=== PATIENT | male | born 1995 | race Caucasian/White ===

== ENCOUNTER 2019-04-02 11:04 | Emergency (ER) | payer MEDICAID ==
[2019-04-02 11:28] LABS: BILIRUBIN,URINE NEGATIVE (NEGATIVE); GLUCOSE, URINE (UA) NEGATIVE (NEGATIVE); KETONES,URINE (UA) NEGATIVE (NEGATIVE); LEUKOCYTE ESTERASE, URINE NEGATIVE (NEGATIVE); NITRITE,URINE NEGATIVE (NEGATIVE); OCCULT BLOOD,URINE SMALL (NEGATIVE); PROTEIN,URINE TRACE mg/dL (NEGATIVE); UROBILINOGEN,URINE 0.2 (NORMAL) E.U./dL (NORMAL)
[2019-04-02 11:33] LABS: CLARITY,URINE CLEAR (CLEAR)
[2019-04-02] MEDS ORDERED: SODIUM CHLORIDE 0.9% 1,000 ML IV ONE (11:45)
[2019-04-02] MEDS ORDERED: KETOROLAC 30 MG/ML VIAL IVP STA (11:45)
[2019-04-02] MEDS ORDERED: LIDOCAINE-MPF 2% 7.5 ML in SODIUM CHLORIDE 0.9% 50 ML IV STA (11:45)
[2019-04-02 11:46] LABS: MUCUS,URINE Moderate Strands; RBC,URINE 0-5 /HPF (0-5)
[2019-04-02 11:47] LABS: BASOPHILS # (AUTO) 0.1 10^3/uL (0.0-0.1); EOSINOPHILS # (AUTO) 0.2 10^3/uL (0.0-0.7); EOSINOPHILS % (AUTO) 3.4 %; HGB - HEMOGLOBIN 14.5 g/dL (14.0-18.0); LYMPHOCYTES # (AUTO) 1.6 10^3/uL (1.5-3.5); LYMPHOCYTES % (AUTO) 26.5 %; MEAN CORPUSCULAR HEMOGLOBIN 32.5 pg (27.0-31.0); MEAN CORPUSCULAR HGB CONC 34.6 g/dL (32.0-36.0); MEAN CORPUSCULAR VOLUME 93.9 fL (80.0-94.0); MONOCYTES # (AUTO) 0.5 10^3/uL (0.0-1.0); MONOCYTES % (AUTO) 7.8 %; NEUTROPHILS # (AUTO) 3.8 10^3/uL (1.5-6.6); NEUTROPHILS % (AUTO) 60.8 %; PLT - PLATELET COUNT 181 10^3/uL (130-450); RED BLOOD COUNT 4.46 10^6/uL (4.70-6.10); RED CELL DISTRIBUTION WIDTH 11.3 % (12.0-15.0); WHITE BLOOD COUNT 6.2 x10^3/uL (4.8-10.8)
[2019-04-02 12:05] LABS: ALBUMIN 4.1 g/dL (3.2-5.5); ALBUMIN/GLOBULIN RATIO 1.3 (1.0-2.2); BILIRUBIN,TOTAL 0.9 mg/dL (0.2-1.0); CALCIUM 8.7 mg/dL (8.5-10.3); CREATININE 0.7 mg/dL (0.6-1.2); TOTAL PROTEIN 7.2 g/dL (6.7-8.2)
[2019-04-02 12:15] LABS: BACTERIA,URINE None Seen /HPF (None Seen); SQUAMOUS EPITHELIAL CELL,UR NONE SEEN (<= Few)
--- NOTE | 2019-04-02 12:21 | ED Physician Documentation ---
PD HPI ABD PAIN - Stated complaint Stated Complaint: SIDE PX - Chief complaint Chief Complaint: Abd Pain - History obtained from History obtained from: Patient - History of Present Illness Timing - onset: How many hours ago (5) Timing - duration: Days (1) Timing - details: Abrupt onset Pain level max: 5 Pain level now: 5 Quality: Aching, Pain Location: Other (L flank to L groin) Radiation: No: Chest, , Lower back, Left flank, Left shoulder, Other, Right flank, Right shoulder, Upper back Improved by: Other (motrin) Worsened by: No: Eating, Moving, Breathing, Position, Palpation Associated symptoms: No: Fever, Nausea, Vomiting, Hematemesis, Diarrhea, Constipation, Melena, Hematochezia, Dysuria, Hematuria Similar symptoms before: Diagnosis (renal stones) Recently seen: Not recently seen Review of Systems Constitutional: denies: Fever, Chills Cardiac: denies: Chest pain / pressure Respiratory: denies: Cough GI: denies: Vomiting, Diarrhea Skin: denies: Rash Musculoskeletal: denies: Neck pain, Back pain Neurologic: denies: Headache PD PAST MEDICAL HISTORY - Past Medical History Past Medical History: Yes Cardiovascular: Hypertension Respiratory: None Neuro: None Endocrine/Autoimmune: None GI: None : Kidney stones HEENT: None Psych: None Musculoskeletal: None Derm: None - Past Surgical History Past Surgical History: Yes - Present Medications Home Medications: Ambulatory Orders Medication Instructions Recorded Confirmed Ibuprofen [Motrin] 800 mg PO Q8H PRN #30 tablet 04/02/19 Ondansetron Odt [Zofran] 4 mg TL Q6H PRN #10 tablet 04/02/19 Oxycodone HCl/Acetaminophen 1 - 2 each PO Q6H PRN #14 tablet 04/02/19 [Percocet 5-325 mg Tablet] - Allergies Allergies/Adverse Reactions: Allergies Allergy/AdvReac Type Severity Reaction Status Date / Time No Known Drug Allergies Allergy Verified 04/02/19 11:16 - Social History Does the pt smoke?: Yes Smoking Status: Current some day smoker Does the pt drink ETOH?: Yes Substance Use and Type: Marijuana - Immunizations Immunizations are current?: Yes PD ED PE NORMAL - Vitals Vital signs reviewed: Yes - General General: Alert and oriented X 3, No acute distress, Well developed/nourished - HEENT HEENT: PERRL, Moist mucous membranes - Neck Neck: Supple, no meningeal sign - Cardiac Cardiac: RRR, Strong equal pulses - Respiratory Respiratory: No respiratory distress, Clear bilaterally - Abdomen Abdomen: Soft, Non tender, Non distended - Back Back: No CVA TTP, No spinal TTP - Derm Derm: Warm and dry - Extremities Extremities: No edema - Neuro Neuro: Alert and oriented X 3 - Psych Psych: Normal mood, Normal affect Results - Vitals Vitals: Vital Signs - 24 hr 04/02/19 04/02/19 11:10 13:21 Temperature 36.4 C L 36.4 C L Heart Rate 61 73 Respiratory 16 20 Rate Blood Pressure 166/83 H 131/84 H O2 Saturation 96 98 Oxygen O2 Source Room air - Labs Labs: Laboratory Tests 04/02/19 04/02/19 04/02/19 11:22 11:39 11:39 WBC 6.2 RBC 4.46 L Hgb 14.5 Hct 41.9 L MCV 93.9 MCH 32.5 H MCHC 34.6 RDW 11.3 L Plt Count 181 MPV 10.0 Neut # (Auto) 3.8 Lymph # (Auto) 1.6 [place] # (Auto) 0.5 Eos # (Auto) 0.2 Baso # (Auto) 0.1 Absolute Nucleated RBC 0.00 Nucleated RBC % 0.0 Sodium 138 Potassium 3.6 Chloride 105 Carbon Dioxide 22 Anion Gap 11.0 BUN 14 Creatinine 0.7 Estimated GFR (MDRD) 139 Glucose 94 Calcium 8.7 Total Bilirubin 0.9 AST 23 ALT 47 Alkaline Phosphatase 48 Total Protein 7.2 Albumin 4.1 Globulin 3.1 Albumin/Globulin Ratio 1.3 Lipase 27 Urine Color YELLOW Urine Clarity CLEAR Urine pH 6.0 Ur Specific [place] 1.025 Urine Protein TRACE Urine Glucose (UA) NEGATIVE Urine Ketones NEGATIVE Urine Occult Blood SMALL H Urine Nitrite NEGATIVE Urine Bilirubin NEGATIVE Urine Urobilinogen 0.2 (NORMAL) Ur Leukocyte Esterase NEGATIVE Urine RBC 0-5 Urine WBC 0-3 Ur Squamous Epith Cells NONE SEEN Urine Bacteria None Seen Urine Mucus Moderate Strands Ur Microscopic Review INDICATED Urine Culture Comments NOT INDICATED PD MEDICAL DECISION MAKING - ED course Complexity details: reviewed results, re-evaluated patient, considered differential, d/w patient ED course: 23-year-old male presents to the emergency department what appears to be ureteral stone. Pain well controlled with Toradol, morphine, lidocaine. Tolerating p.o. without difficulty. Will place on pain medication for home and follow-up with his doctor. As he has had several ureteral stones in the past, will hold CT scan at this time. This was discussed with the patient. Patient and family counseled regarding signs and symptoms for which I believe and urgent re-evaluation would be necessary. Patient with good understanding of and agreement to plan and is comfortable going home at this time This document was made in part using voice recognition software. While efforts are made to proofread this document, sound alike and grammatical errors may occur. Departure - Departure Disposition: Home, Self Care Clinical Impression: Ureteral calculus, left Condition: Good Instructions: ED Stone Renal W Colic Follow-Up: your,doctor in 3 days [Other] Prescriptions: Ibuprofen [Motrin] 800 mg PO Q8H PRN #30 tablet PRN Reason: PAIN &/OR FEVER Ondansetron Odt [Zofran] 4 mg TL Q6H PRN #10 tablet PRN Reason: Nausea / Vomiting Oxycodone HCl/Acetaminophen [Percocet 5-325 mg Tablet] 1 - 2 each PO Q6H PRN #14 tablet PRN Reason: pain Comments: Return if you worsen. Follow-up with your doctor for further care. Return especially for uncontrolled pain or fevers. If your pain does not improve in the next several days, you should have a CT scan to ensure that the stone is small enough to pass. Do not drink alcohol or drive while on narcotic pain medicine. Note that many narcotic pain relievers also contain tylenol/acetaminophen. Please ensure that your total dose of acetaminophen from all sources does not exceed 3 grams (3000mg) per day. You may constipated on this medication, take a stool softener such as "Colace" twice a day while you are on it. Also recommend a iorf-[id number] laxative such as senna or MiraLAX any day that you do not have a bowel movement. If you received narcotic pain medication in the emergency department, do not drive or operate machinery for the next 24 hours. Discharge Date/Time: 04/02/19 13:30
[2019-04-02] MEDS ORDERED: MORPHINE 2 MG/ML CARPUJECT IVP STA (12:41)
[2019-04-02] MEDS ORDERED: oxyCODONE 5 MG TABLET PO STA (12:42)
[2019-04-02 13:22] VITALS: BP 131/84
== END 2019-04-02 13:30 | disposition home or self-care (01) ==
LOC: ED 11:04
DX: N20.1 Calculus of ureter (principal); Z87.442 Personal history of urinary calculi; I10 Essential (primary) hypertension; F17.200 Nicotine dependence, unspecified, uncomplicated
CPT/HCPCS: 36415; 80053; 81001; 83690; 85025; 96361; 96374; 96375; 99284; A9270; J7040; 81003; 87086

== ENCOUNTER 2019-04-06 12:54 | Emergency (ER) | payer MEDICAID ==
--- NOTE | 2019-04-06 13:38 | ED Physician Documentation ---
PD HPI LOWER EXT INJURY - Stated complaint Stated Complaint: RT GREAT TOE INJURY - Chief complaint Chief Complaint: Ext Problem - History obtained from History obtained from: Patient - History of Present Illness PD HPI LOW EXT INJURY LOCATION: Right, Toe (dropped object on toe and has pain and swelling, bruising.) Type of injury: Blunt / blow (dropped plate on toe and hs swelling/bruising and pain.) Where injury occurred: Home Timing - onset: Last night Timing - details: Abrupt onset, Still present (more painful today) Worsened by: Moving, Palpating Associated symptoms: Swelling, Discolored (bruised under nail and at nychial area). No: Weakness, Numbness Similar symptoms before: Has not had sx before Review of Systems Skin: denies: Abrasion (s), Laceration (s) Neurologic: denies: Focal weakness, Numbness PD PAST MEDICAL HISTORY - Past Medical History Cardiovascular: Hypertension Respiratory: None Neuro: None Endocrine/Autoimmune: None GI: None : Kidney stones HEENT: None Psych: None Musculoskeletal: None Derm: None - Past Surgical History Past Surgical History: Yes - Present Medications Home Medications: Ambulatory Orders Medication Instructions Recorded Confirmed Ibuprofen [Motrin] 800 mg PO Q8H PRN #30 tablet 04/02/19 Ondansetron Odt [Zofran] 4 mg TL Q6H PRN #10 tablet 04/02/19 Oxycodone HCl/Acetaminophen 1 - 2 each PO Q6H PRN #14 tablet 04/02/19 [Percocet 5-325 mg Tablet] - Allergies Allergies/Adverse Reactions: Allergies Allergy/AdvReac Type Severity Reaction Status Date / Time No Known Drug Allergies Allergy Verified 04/06/19 13:08 - Social History Does the pt smoke?: Yes Smoking Status: Current some day smoker Does the pt drink ETOH?: Yes - Immunizations Immunizations are current?: Yes PD ED PE NORMAL - Vitals Vital signs reviewed: Yes - General General: Alert and oriented X 3, No acute distress, Well developed/nourished - Derm Derm: Normal color, Warm and dry - Extremities Extremities: Other (right great toe with blood under proximal part of nail, and some bruising to base of nail and proximal distal phalanx dorsally. Normal sensation and movement. ) Results - Vitals Vitals: Oxygen O2 Source Room air - Rads (name of study) toe xray Radiology: Prelim report reviewed (no fracture), See rad report PD MEDICAL DECISION MAKING - ED course Complexity details: considered differential (battery cautery used to burn hole in nail and decompress the hematoma. He felt some better with that. ), d/w patient Departure - Departure Disposition: 01 Home, Self Care Clinical Impression: Subungual hematoma Toe contusion Qualifiers: Encounter type: initial encounter Toe: great toe Damage to nail status: with damage Laterality: right Qualified Code(s): S90.211A - Contusion of right great toe with damage to nail, initial encounter Condition: Stable Record reviewed to determine appropriate education?: Yes Instructions: ED Hematoma Subungual Comments: Soak the toe a little bit or some dilute peroxide and water at the nail if it seems to clog up and not draining. However will only drain for a little while until the blood underneath the nail clears out. After that the remaining bruising and swelling will take several days to decrease. Naproxen or ibuprofen as needed for pain and swelling. Add Tylenol if needed. Activity as tolerated. There were not any fractures on the x-ray. Discharge Date/Time: 04/06/19 14:10
[2019-04-06] MEDS ORDERED: ACETAMINOPHEN 325 MG TABLET PO STA (13:50)
[2019-04-06] MEDS ORDERED: IBUPROFEN 600 MG TABLET PO STA (13:50)
--- NOTE | 2019-04-06 13:51 | XRAY Report ---
Reason: plate vs foot Procedure Date: 04/06/2019 Accession Number: [id number] / [id number] Procedure: XR - Toe(s) RT CPT Code: FULL RESULT: EXAM: RIGHT TOE RADIOGRAPHY EXAM DATE: 04/06/2019 01:35 PM. CLINICAL HISTORY: Right great toe injury. COMPARISON: None available. TECHNIQUE: 3 views. FINDINGS: Bones: No acute fracture or dislocation. Joints: Intact and unremarkable. Soft Tissues: No radiopaque foreign body.. No significant soft tissue swelling. IMPRESSION: No acute fracture or dislocation visualized. RADIA
[2019-04-06 14:11] VITALS: BP 145/68
== END 2019-04-06 14:10 | disposition home or self-care (01) ==
LOC: ED 12:54
DX: S90.211A Contusion of right great toe with damage to nail, initial encounter (principal); W20.8XXA Other cause of strike by thrown, projected or falling object, initial encounter; Y92.009 Unspecified place in unspecified non-institutional (private) residence as the place of occurrence of the external cause; I10 Essential (primary) hypertension; F17.200 Nicotine dependence, unspecified, uncomplicated
CPT/HCPCS: 11740; 73660; 99283; A9270

== ENCOUNTER 2019-11-12 13:19 | Outpatient (CLI) | payer MEDICAID | END 2019-11-12 13:20 | disposition critical access hospital (66) | LOC: EMS 13:19 | PROVIDERS: ATTEND Surgery | DX: R07.9 Chest pain, unspecified (principal) | CPT/HCPCS: A0425; A0429; A0999 ==

== ENCOUNTER 2019-11-12 13:41 | Emergency (ER) | payer MEDICAID ==
--- NOTE | 2019-11-12 13:53 | ED Physician Documentation ---
PD HPI CHEST PAIN - Stated complaint Stated Complaint: CP - Chief complaint Chief Complaint: Cardiac - History obtained from History obtained from: Patient - History of Present Illness Timing - onset: Today Timing - onset during: Light activity (Just normal activity without any direct impact fall or heavy lifting.) Timing - duration: Hours Timing - details: Abrupt onset Quality: Aching, Sharp Location: Left chest (anterolateral) Radiation: Back. No: Neck, Left upper extremity Improved by: No: Rest Worsened by: Inspiration, Movement. No: Eating, Palpation Associated symptoms: Shortness of air, Feeling faint / dizzy. No: Nausea, General Weakness, Palpitations, Cough Similar symptoms before: Has not had sx before Review of Systems Constitutional: denies: Fever, Chills Nose: denies: Rhinorrhea / runny nose, Congestion Throat: denies: Sore throat Cardiac: denies: Palpitations, Pedal edema, Calf pain Respiratory: denies: Cough GI: denies: Abdominal Pain, Nausea, Vomiting, Diarrhea : denies: Hematuria Skin: denies: Rash, Lesions Neurologic: reports: Generalized weakness, Near syncope. denies: Focal weakness, Numbness, Syncope PD PAST MEDICAL HISTORY - Past Medical History Cardiovascular: Hypertension Respiratory: None Neuro: None Endocrine/Autoimmune: None GI: None : Kidney stones HEENT: None Psych: None Musculoskeletal: None Derm: None - Past Surgical History Past Surgical History: Yes - Present Medications Home Medications: Ambulatory Orders Medication Instructions Recorded Confirmed Ibuprofen [Motrin] 800 mg PO Q8H PRN #30 tablet 04/02/19 11/12/19 Hydrocodone/Acetaminophen [[place] 1 each PO Q6H PRN #15 tablet 11/12/19 5-325 Tablet] Naproxen 500 mg PO BID #20 tablet 11/12/19 - Allergies Allergies/Adverse Reactions: Allergies Allergy/AdvReac Type Severity Reaction Status Date / Time No Known Drug Allergies Allergy Verified 11/12/19 14:29 - Living Situation Living Arrangement: reports: At home - Social History Does the pt smoke?: Yes Smoking Status: Current some day smoker Does the pt drink ETOH?: Yes Does the pt have substance abuse?: No - Family History Family history: reports: CAD. denies: Sudden , Aortic aneursym, Aortic dissection - Immunizations Immunizations are current?: Yes PD ED PE NORMAL - Vitals Vital signs reviewed: Yes - General General: Alert and oriented X 3, Well developed/nourished, Other (He appears uncomfortable with slightly splinted breathing and guarded range of motion of the trunk. He is able to talk in normal sentences.) - HEENT HEENT: Ears normal, Moist mucous membranes, Pharynx benign - Neck Neck: Supple, no meningeal sign, No adenopathy - Cardiac Cardiac: RRR, No murmur - Respiratory Respiratory: Clear bilaterally, Other (Some chestwall tenderness left lower sternal border and medial costal margin. Right not tender. ) - Abdomen Abdomen: Soft, Non tender Results - Vitals Vitals: Vital Signs - 24 hr 11/12/19 11/12/19 11/12/19 13:46 14:23 15:36 Temperature 36.9 C 37 C Heart Rate 92 86 84 Respiratory 16 18 18 Rate Blood Pressure 151/100 H 153/97 H 143/98 H O2 Saturation 98 98 96 Oxygen O2 Source Room air - EKG (time done) 13:45 Rate: Rate (enter#) (85) Rhythm: NSR [place]: Normal Intervals: Normal [place] QRS: Normal Ischemia: Normal ST segments. No: ST elevation c/w ischemia, ST depression - Labs Labs: Laboratory Tests 11/12/19 11/12/19 11/12/19 13:51 14:29 14:29 WBC 5.5 RBC 4.22 L Hgb 15.3 Hct 41.6 L MCV 98.6 H MCH 36.3 H MCHC 36.8 H RDW 11.2 L Plt Count 150 MPV 9.9 Neut # (Auto) 4.1 Lymph # (Auto) 0.8 L [place] # (Auto) 0.4 Eos # (Auto) 0.1 Baso # (Auto) 0.1 Absolute Nucleated RBC 0.00 Nucleated RBC % 0.0 D-Dimer < 200.0 L Sodium 134 L Potassium 3.6 Chloride 102 Carbon Dioxide 24 Anion Gap 8.0 BUN 7 Creatinine 0.6 Estimated GFR (MDRD) 164 Glucose 124 H Calcium 8.3 L Total Bilirubin 1.2 H AST 131 H ALT 112 H Alkaline Phosphatase 71 Troponin I High Sens B-Natriuretic Peptide Total Protein 7.5 Albumin 3.9 Globulin 3.6 Albumin/Globulin Ratio 1.1 Lipase 25 11/12/19 11/12/19 14:29 14:29 WBC RBC Hgb Hct MCV MCH MCHC RDW Plt Count MPV Neut # (Auto) Lymph # (Auto) [place] # (Auto) Eos # (Auto) Baso # (Auto) Absolute Nucleated RBC Nucleated RBC % D-Dimer Sodium Potassium Chloride Carbon Dioxide Anion Gap BUN Creatinine Estimated GFR (MDRD) Glucose Calcium Total Bilirubin AST ALT Alkaline Phosphatase Troponin I High Sens 13.4 B-Natriuretic Peptide 19 Total Protein Albumin Globulin Albumin/Globulin Ratio Lipase - Rads (name of study) chest xray Radiology: Prelim report reviewed, See rad report (normal) PD MEDICAL DECISION MAKING - ED course Complexity details: reviewed results (Chest x-ray is normal. EKG does not show any ischemic changes. Blood tests exclude any signs of acute cardiac myocardial process nor heart failure. Negative d-dimer would exclude clots and vascular processes such as dissection.), re-evaluated patient, considered differential (We will get a chest x-ray as well as some blood test to look for heart and vascular processes. This may be musculoskeletal but would be exclusionary of not finding other bad things.), d/w patient Departure - Departure Disposition: 01 Home, Self Care Clinical Impression: Anterior chest wall pain Condition: Stable Record reviewed to determine appropriate education?: Yes Instructions: ED Chest Pain Atypical Unkn Cause Prescriptions: Hydrocodone/Acetaminophen [[place] 5-325 Tablet] 1 each PO Q6H PRN #15 tablet PRN Reason: Pain Naproxen 500 mg PO BID #20 tablet Comments: Your EKG, chest x-ray, blood tests are normal so no signs of more significant causes such as heart lung or vascular. At this point we will presume some musculoskeletal pain and treated with anti-inflammatories of naproxen. At that to that Tylenol or pain medicine as needed. Recheck if not improving well over the next several days and resolved over 4 to 5 days. Return if worse or other symptoms develop. Discharge Date/Time: 11/12/19 16:02
[2019-11-12] MEDS ORDERED: MORPHINE 2 MG/ML CARPUJECT IVP STA ×2 (14:08→15:29)
[2019-11-12] MEDS ORDERED: KETOROLAC 30 MG/ML VIAL IVP STA (14:08)
[2019-11-12] MEDS ORDERED: MAG HYDROX/AL HYDROX/SIMETH 30 ML UDC PO STA (14:08)
[2019-11-12 14:38] LABS: BASOPHILS # (AUTO) 0.1 10^3/uL (0.0-0.1); BASOPHILS % (AUTO) 0.9 %; EOSINOPHILS # (AUTO) 0.1 10^3/uL (0.0-0.7); EOSINOPHILS % (AUTO) 1.1 %; HGB - HEMOGLOBIN 15.3 g/dL (14.0-18.0); LYMPHOCYTES # (AUTO) 0.8 10^3/uL (1.5-3.5); MEAN CORPUSCULAR HEMOGLOBIN 36.3 pg (27.0-31.0); MEAN CORPUSCULAR HGB CONC 36.8 g/dL (32.0-36.0); MEAN CORPUSCULAR VOLUME 98.6 fL (80.0-94.0); MEAN PLATELET VOLUME 9.9 fL (7.4-11.4); MONOCYTES # (AUTO) 0.4 10^3/uL (0.0-1.0); NEUTROPHILS # (AUTO) 4.1 10^3/uL (1.5-6.6); NEUTROPHILS % (AUTO) 74.8 %; PLT - PLATELET COUNT 150 10^3/uL (130-450); RED BLOOD COUNT 4.22 10^6/uL (4.70-6.10); RED CELL DISTRIBUTION WIDTH 11.2 % (12.0-15.0); WHITE BLOOD COUNT 5.5 x10^3/uL (4.8-10.8)
--- NOTE | 2019-11-12 14:42 | XRAY Report ---
Reason: Chest Pain Procedure Date: 11/12/2019 Accession Number: [id number] / [id number] Procedure: XR - Chest 1 View X-Ray CPT Code: 60962 Final Report FULL RESULT: EXAM: CHEST RADIOGRAPHY EXAM DATE: 11/12/2019 02:28 PM. CLINICAL HISTORY: Chest Pain. COMPARISON: None. TECHNIQUE: 1 view. FINDINGS: Lungs/Pleura: No focal opacities are evident. No pleural effusion or pneumothorax. Mediastinum: Normal cardiomediastinal contour. Other: The bones are normal. IMPRESSION: Normal single view chest. RADIA
[2019-11-12 14:52] LABS: ALBUMIN 3.9 g/dL (3.2-5.5); ALBUMIN/GLOBULIN RATIO 1.1 (1.0-2.2); BILIRUBIN,TOTAL 1.2 mg/dL (0.2-1.0); CALCIUM 8.3 mg/dL (8.5-10.3); CREATININE 0.6 mg/dL (0.6-1.2); TOTAL PROTEIN 7.5 g/dL (6.7-8.2)
[2019-11-12] MEDS ORDERED: ACETAMINOPHEN 325 MG TABLET PO STA (15:29)
[2019-11-12 15:37] VITALS: BP 143/98
== END 2019-11-12 16:02 | disposition home or self-care (01) ==
LOC: EDUNIT# → ED 13:41
DX: R07.89 Other chest pain (principal); I10 Essential (primary) hypertension; F17.200 Nicotine dependence, unspecified, uncomplicated
CPT/HCPCS: 36415; 71045; 80053; 83690; 83880; 84484; 85025; 85379; 93005; 96374; 96376; 99284; A9270

== ENCOUNTER 2020-07-20 14:04 | Emergency (ER) | payer MEDICAID ==
--- NOTE | 2020-07-20 14:46 | ED Physician Documentation ---
PD HPI URI - Stated complaint Stated Complaint: CHEST PX/COUGHING BLOOD - Chief complaint Chief Complaint: Cardiac - History obtained from History obtained from: Patient - History of Present Illness Timing - onset: How many days ago (2-3) Timing duration: Days (2-3) Timing details: Abrupt onset (noted left flank pain to left upper abd started 2- 3 days ago, which has persisted undulatingly, with some upper abd pain as well. Nausea with vomiting several times the past couple days. This morning awoke with some dark blood on pillow. Did not know if he coughed it or vomited it.), Still present Associated symptoms: Dry cough, NVD, Other (left flank pain). No: Fever, Chills, Sore throat, Productive cough Contributing factors: Other (no regular alcohol use. Denies regular NSAIDs. Has been taking Tylenol for his flank pain.). No: Sick contact, Travel Worsened by: No: Activity, Breathing Similar symptoms before: Diagnosis (has had kidney stones in [place] past causing similar flank pain. No similar nausea nor upper abd pain nor any history of UGIB.) Review of Systems Constitutional: denies: Fever, Chills Nose: denies: Rhinorrhea / runny nose, Congestion Throat: denies: Sore throat Respiratory: denies: Cough GI: reports: Abdominal Pain, Nausea, Vomiting. denies: Abdominal Swelling, Diarrhea, Bloody / black stool Skin: denies: Rash, Lesions Neurologic: reports: Generalized weakness. denies: Focal weakness, Numbness PD PAST MEDICAL HISTORY - Past Medical History Past Medical History: Yes Cardiovascular: Hypertension Respiratory: None Neuro: None Endocrine/Autoimmune: None GI: None : Kidney stones HEENT: None Psych: None Musculoskeletal: None Derm: None - Past Surgical History Past Surgical History: Yes - Present Medications Home Medications: Ambulatory Orders Medication Instructions Recorded Confirmed Ibuprofen [Motrin] 800 mg PO Q8H PRN #30 tablet 04/02/19 11/12/19 Hydrocodone/Acetaminophen [[place] 1 each PO Q6H PRN #15 tablet 11/12/19 5-325 Tablet] Naproxen 500 mg PO BID #20 tablet 11/12/19 Famotidine [Pepcid] 20 mg PO DAILY #30 tablet 07/20/20 Ondansetron Odt [Zofran] 4 mg TL Q6H PRN #10 tablet 07/20/20 Oxycodone HCl/Acetaminophen 1 each PO Q6H PRN #20 tablet 07/20/20 [Percocet 5-325 mg Tablet] Sucralfate [Carafate] 1 gm PO TID #20 tablet 07/20/20 - Allergies Allergies/Adverse Reactions: Allergies Allergy/AdvReac Type Severity Reaction Status Date / Time No Known Drug Allergies Allergy Verified 07/20/20 14:11 - Social History Does the pt smoke?: No Smoking Status: Never smoker Does the pt drink ETOH?: Yes ETOH Use: Beer Does the pt have substance abuse?: No Substance Use and Type: CBD oil / Products - Immunizations Immunizations are current?: Yes - POLST Patient has POLST: No PD ED PE NORMAL - Vitals Vital signs reviewed: Yes - General General: Alert and oriented X 3, Well developed/nourished, Other (appears in pain) - HEENT HEENT: Pharynx benign - Neck Neck: Supple, no meningeal sign, No adenopathy - Cardiac Cardiac: RRR, No murmur - Respiratory Respiratory: Clear bilaterally - Abdomen Abdomen: Normal bowel sounds, Soft, Non distended, No organomegaly, Other (some tenderness epigastric and LUQ area. Also left CVA tenderness to percussion. No spinal tenderness. No skin rash nor sensitive to light touch. ) - Back Back: No spinal TTP - Derm Derm: Normal color, Warm and dry, No rash - Extremities Extremities: No tenderness to palpate, Normal ROM s pain, No edema, No calf tenderness / cord Results - Vitals Vitals: Vital Signs - 24 hr 07/20/20 07/20/20 07/20/20 14:07 14:11 14:34 Temperature 37.3 C 37.3 C Heart Rate 76 86 Respiratory 16 15 Rate Blood Pressure 149/95 H 135/79 H O2 Saturation 97 97 07/20/20 07/20/20 16:04 17:51 Temperature 37.3 C Heart Rate 78 84 Respiratory 16 16 Rate Blood Pressure 140/81 H 149/87 H O2 Saturation 99 99 Oxygen O2 Source Room air - EKG (time done) 14:14 Rate: Rate (enter#) (89) Rhythm: NSR [place]: Normal Intervals: Normal [place] QRS: Normal Ischemia: Normal ST segments. No: ST elevation c/w ischemia, ST depression - Labs Labs: Laboratory Tests 07/20/20 07/20/20 15:26 15:26 WBC 5.4 RBC 4.51 L Hgb 15.6 Hct 43.5 MCV 96.5 H MCH 34.6 H MCHC 35.9 RDW 11.9 L Plt Count 160 MPV 9.0 Neut # (Auto) 3.8 Lymph # (Auto) 1.0 L [place] # (Auto) 0.4 Eos # (Auto) 0.1 Baso # (Auto) 0.0 Absolute Nucleated RBC 0.00 Nucleated RBC % 0.0 Sodium 138 Potassium 3.0 L Chloride 97 L Carbon Dioxide 28 Anion Gap 13.0 BUN < 5 L Creatinine 0.5 L Estimated GFR (MDRD) 201 Glucose 127 H Calcium 9.1 Total Bilirubin 1.3 H AST 147 H ALT 119 H Alkaline Phosphatase 84 Total Protein 7.4 Albumin 3.8 Globulin 3.6 Albumin/Globulin Ratio 1.1 - Rads (name of study) abd/pelvic CT Radiology: Prelim report reviewed (partly obstruction left UPJ 5 mm stone with mod hydronephrosis. ), See rad report chest CT Radiology: Prelim report reviewed (no acute process), See rad report PD MEDICAL DECISION MAKING - ED course Complexity details: reviewed results, re-evaluated patient (improved with some IV pain meds regarding flank pain. antacid helped some with stomach. ), considered differential (he is unsure if coughed blood or vomited it during sllep. Has had some cough. So can get Chest CT to ensure no central/bronchial masses/etc to suggest concern for massive hemoptysis. Flank pain likely c/w kidney stone. ), d/w patient Departure - Departure Disposition: 01 Home, Self Care Clinical Impression: Acute flank pain, Hypokalemia Nausea and vomiting Qualifiers: Vomiting type: hematemesis Qualified Code(s): K92.0 - Hematemesis Acute gastritis Qualifiers: Gastritis type: unspecified gastritis Gastritis bleeding: with bleeding Qualified Code(s): K29.01 - Acute gastritis with bleeding Condition: Stable Record reviewed to determine appropriate education?: Yes Instructions: ED Gastritis, ED Stone Renal W Colic Follow-Up: LuisA Santa MD [Provider Admit Priv/Credential] - [facility] [Provider Group] Prescriptions: Sucralfate [Carafate] 1 gm PO TID #20 tablet Famotidine [Pepcid] 20 mg PO DAILY #30 tablet Oxycodone HCl/Acetaminophen [Percocet 5-325 mg Tablet] 1 each PO Q6H PRN #20 tablet PRN Reason: pain Ondansetron Odt [Zofran] 4 mg TL Q6H PRN #10 tablet PRN Reason: Nausea / Vomiting Comments: Your flank pain is caused by a partly obstructing kidney stone just coming out of the kidney. Follow-up with urology regarding this, call for an appointment. We will treat it with adequate hydration and ondansetron if needed for nausea and add Tylenol or oxycodone as needed for pain. It sounds like your stomach is irritated as well with the vomiting and the presumed vomiting of blood. As such, I would suggest not taking any anti- inflammatories such as ibuprofen or naproxen. Use the above pain medicine as needed instead. Famotidine acid reducing medicine daily for the next 3 weeks. Also add sucralfate to coat the stomach several times a day as prescribed. Follow-up with the primary care clinic regarding the stomach and other symptoms. Your blood tests show a slightly low potassium level, so add some potassium rich food over the next several days or week. Recheck if not improved well over the next few days return if worsening. Discharge Date/Time: 07/20/20 17:51
[2020-07-20] MEDS ORDERED: FAMOTIDINE 20 MG/2 ML VIAL IVP STA (15:19)
[2020-07-20] MEDS ORDERED: HYDROmorphone 1 MG/ML CARPUJECT IVP STA ×2 (15:19→17:01)
[2020-07-20] MEDS ORDERED: SODIUM CHLORIDE 0.9% 1,000 ML IV STA (15:19)
[2020-07-20] MEDS ORDERED: ONDANSETRON 4 MG/2 ML VIAL IVP STA (15:19)
[2020-07-20 15:41] LABS: BASOPHILS % (AUTO) 0.7 %; EOSINOPHILS # (AUTO) 0.1 10^3/uL (0.0-0.7); EOSINOPHILS % (AUTO) 1.7 %; HGB - HEMOGLOBIN 15.6 g/dL (14.0-18.0); LYMPHOCYTES % (AUTO) 18.7 %; MEAN CORPUSCULAR HEMOGLOBIN 34.6 pg (27.0-31.0); MEAN CORPUSCULAR HGB CONC 35.9 g/dL (32.0-36.0); MEAN CORPUSCULAR VOLUME 96.5 fL (80.0-94.0); MONOCYTES # (AUTO) 0.4 10^3/uL (0.0-1.0); MONOCYTES % (AUTO) 7.1 %; NEUTROPHILS # (AUTO) 3.8 10^3/uL (1.5-6.6); NEUTROPHILS % (AUTO) 71.2 %; PLT - PLATELET COUNT 160 10^3/uL (130-450); RED BLOOD COUNT 4.51 10^6/uL (4.70-6.10); RED CELL DISTRIBUTION WIDTH 11.9 % (12.0-15.0); WHITE BLOOD COUNT 5.4 x10^3/uL (4.8-10.8)
[2020-07-20 15:55] LABS: ALBUMIN 3.8 g/dL (3.2-5.5); ALBUMIN/GLOBULIN RATIO 1.1 (1.0-2.2); ALKALINE PHOSPHATASE 84 IU/L (42-121); ALT ALANINE AMINOTRANSFERASE 119 IU/L (10-60); AST ASPARTATE AMINOTRANSFERASE 147 IU/L (10-42); BILIRUBIN,TOTAL 1.3 mg/dL (0.2-1.0); BUN - BLOOD UREA NITROGEN < 5 mg/dL (6-20); CALCIUM 9.1 mg/dL (8.5-10.3); CARBON DIOXIDE - CO2 28 mmol/L (21-32); CHLORIDE 97 mmol/L (101-111); CREATININE 0.5 mg/dL (0.6-1.2); GLUCOSE 127 mg/dL (70-100); SODIUM 138 mmol/L (135-145); TOTAL PROTEIN 7.4 g/dL (6.7-8.2)
--- NOTE | 2020-07-20 16:39 | CT Report ---
PROCEDURE: KUB INDICATIONS: Upper left abdominal pain and left flank pain; history of kidney stones TECHNIQUE: Noncontrast 5 mm thick sections acquired from the diaphragms to the symphysis. 5 mm coronal and sagi ttal reformats were then performed. For radiation dose reduction, the following was used: automated exposure control, adjustment of mA and/or kV according to patient size. COMPARISON: None. FINDINGS: Image quality: Excellent. Lung bases: Lung bases are clear. Heart size is normal. Urinary system: Multiple nonobstructing renal calculi in the left lower pole measuring up to 4 mm. Ap proximately 4 mm x 5 mm calculus at the left UPJ. Moderate left hydronephrosis. Periureteric fat stra nding proximal to the calculus. Remainder of the left ureter is decompressed and unremarkable. On the right there is no urinary tract calculus, hydronephrosis, hydroureter, or fat stranding adjacent to the collecting system. Urinary bladder is within normal limits. Other solid organs: Normal unenhanced CT appearance of the liver, spleen, pancreas, gallbladder, and adrenal glands. Peritoneum and bowel: No abnormally dilated or thickened loops of bowel. No pericolonic or mesenteric inflammatory change. Nodes and vessels: No retroperitoneal or mesenteric adenopathy by size criteria. Aorta and inferior vena cava are normal in caliber. Abdominal wall: No ventral hernia. Pelvis: No free pelvic fluid. No inguinal hernias or adenopathy. Bones: No suspicious bony lesions. No vertebral body compression fractures. IMPRESSION: Obstructing 4 x 5 mm left UPJ calculus producing moderate left hydronephrosis. Additional nonobstructing lower pole renal calculi measuring up to 4 mm . Reviewed by: Fernie Baker MD on 07/20/2020 4:38 PM PST Approved by: Fernie Baker MD on 07/20/2020 4:38 PM PST Station ID: [id number]
--- NOTE | 2020-07-20 16:41 | CT Report ---
PROCEDURE: CHEST WO INDICATIONS: Hemoptysis TECHNIQUE: Noncontrast 5 mm thick sections acquired from the pulmonary apices to the posterior costophrenic angl es. 7 mm thick coronal and sagittal MIP reformats were then acquired. For radiation dose reduction, the following was used: automated exposure control, adjustment of mA and/or kV according to patient size. COMPARISON: None FINDINGS: Image quality: Excellent. Lungs and pleura: No acute air space opacities. No pleural effusions or pneumothorax. Central and peripheral airways are patent and normal in caliber. Mediastinum: Heart size is normal. No pericardial effusion. No mediastinal adenopathy by size crit eria. Thoracic aorta and central pulmonary arteries are normal in size. Esophagus is normal in natalie nelda. No hiatal hernia. Bones and chest wall: No suspicious bony lesions. No vertebral body compression fractures. No axil [place] or supraclavicular adenopathy by size criteria. The thyroid is normal in size. IMPRESSION: Unremarkable CT chest. Reviewed by: Fernie Baker MD on 07/20/2020 4:40 PM PST Approved by: Fernie Baker MD on 07/20/2020 4:40 PM PST Station ID: [id number]
[2020-07-20] MEDS ORDERED: MAG HYDROX/AL HYDROX/SIMETH 30 ML UDC PO STA (17:01)
[2020-07-20] MEDS ORDERED: DEXAMETHASONE 10 MG/ML VIAL IVP STA (17:01)
[2020-07-20 17:51] VITALS: BP 149/87
== END 2020-07-20 17:51 | disposition home or self-care (01) ==
LOC: ED 14:04
DX: N13.2 Hydronephrosis with renal and ureteral calculous obstruction (principal); K29.01 Acute gastritis with bleeding; E87.6 Hypokalemia; I10 Essential (primary) hypertension
CPT/HCPCS: 36415; 71250; 74176; 80053; 85025; 93005; 96361; 96374; 96375; 99284; 99285; A9270; J1170

== ENCOUNTER 2020-09-24 13:39 | Emergency (ER) | payer MEDICAID, OTHER ==
[2020-09-24] MEDS ORDERED: PENICILLIN VK 250 MG TABLET PO STA (14:01)
[2020-09-24] MEDS ORDERED: oxyCODONE 5 MG TABLET PO STA (14:01)
[2020-09-24] MEDS ORDERED: ONDANSETRON ODT 4 MG TABLET TL STA (14:01)
--- NOTE | 2020-09-24 14:03 | ED Physician Documentation ---
PD HPI HEENT - Stated complaint Stated Complaint: JAW PX - Chief complaint Chief Complaint: Heent - History obtained from History obtained from: Patient (2 days of severe left lower jaw pain radiating to the ear. Hurts a lot to eat or open his mouth. No fevers.) Review of Systems Constitutional: denies: Fever, Chills Eyes: reports: Reviewed and negative Ears: reports: Reviewed and negative Nose: reports: Reviewed and negative PD PAST MEDICAL HISTORY - Past Medical History Past Medical History: Yes Cardiovascular: Hypertension Respiratory: None Neuro: None Endocrine/Autoimmune: None GI: None : Kidney stones HEENT: None Psych: None Musculoskeletal: None Derm: None - Past Surgical History Past Surgical History: Yes - Present Medications Home Medications: Ambulatory Orders Medication Instructions Recorded Confirmed Ibuprofen [Motrin] 800 mg PO Q8H PRN #30 tablet 04/02/19 11/12/19 Hydrocodone/Acetaminophen [[place] 1 each PO Q6H PRN #15 tablet 11/12/19 5-325 Tablet] Naproxen 500 mg PO BID #20 tablet 11/12/19 Famotidine [Pepcid] 20 mg PO DAILY #30 tablet 07/20/20 Ondansetron Odt [Zofran] 4 mg TL Q6H PRN #10 tablet 07/20/20 Oxycodone HCl/Acetaminophen 1 each PO Q6H PRN #20 tablet 07/20/20 [Percocet 5-325 mg Tablet] Sucralfate [Carafate] 1 gm PO TID #20 tablet 07/20/20 Ibuprofen [Motrin] 800 mg PO Q8H PRN #14 tab 09/24/20 Oxycodone HCl/Acetaminophen 1 - 2 each PO Q6H PRN #14 tab 09/24/20 [Percocet 5-325 mg Tablet] Penicillin V Potassium 500 mg PO Q6HR #40 tab 09/24/20 - Allergies Allergies/Adverse Reactions: Allergies Allergy/AdvReac Type Severity Reaction Status Date / Time No Known Drug Allergies Allergy Verified 09/24/20 13:49 - Social History Does the pt smoke?: No Smoking Status: Never smoker Does the pt drink ETOH?: Yes Does the pt have substance abuse?: No - Immunizations Immunizations are current?: Yes - POLST Patient has POLST: No PD ED PE NORMAL - Vitals Vital signs reviewed: Yes - General General: Alert and oriented X 3, No acute distress - HEENT HEENT: PERRL, EOMI, Other (The left mandibular wisdom tooth is carious and tender. There is no sublingual edema, trismus, or facial swelling. TM on that side is normal.) - Neuro Neuro: Alert and oriented X 3, Normal speech Results - Vitals Vitals: Vital Signs - 24 hr 09/24/20 13:46 Temperature 36.6 C Heart Rate 81 Respiratory 16 Rate Blood Pressure 168/100 H O2 Saturation 96 Oxygen O2 Source Room air Departure - Departure Disposition: Home, Self Care Clinical Impression: Pain due to dental caries Condition: Good Record reviewed to determine appropriate education?: Yes Instructions: ED Tooth Pain Follow-Up: EDGAR IGLESIAS [Physician No Access] - Prescriptions: Penicillin V Potassium 500 mg PO Q6HR #40 tab Ibuprofen [Motrin] 800 mg PO Q8H PRN #14 tab PRN Reason: PAIN &/OR FEVER Oxycodone HCl/Acetaminophen [Percocet 5-325 mg Tablet] 1 - 2 each PO Q6H PRN #14 tab PRN Reason: pain Comments: It is very important that you follow-up with a dentist. When it comes to dental problems like yours, the emergency department can only offer a short-term solution to your long-term problem. First recommendation would be to follow-up with the oral surgeon listed on this form. Otherwise, a couple of low cost options for dental care include: [facility] in [place], calls [phone] for an appointment Or [facility] in [place], call [phone] for an appointment.
[2020-09-24 14:10] VITALS: BP 150/90
== END 2020-09-24 14:09 | disposition home or self-care (01) ==
LOC: ED 13:39
DX: K02.9 Dental caries, unspecified (principal); K08.89 Other specified disorders of teeth and supporting structures; I10 Essential (primary) hypertension
CPT/HCPCS: 99283; A9270; Q0162

== ENCOUNTER 2020-11-21 01:36 | Outpatient (CLI) | payer OTHER, MEDICAID ==
--- OUTSIDE RECORDS SUMMARY | 2020-11-25 02:32 | EXTERNAL MEDICAL SUMMARY RPT | Continuity of Care Document ---
:1995 Demographics Phone Unavailable Preferred Language Unknown Marital Status Unknown Restoration Affiliation Unknown Race Unknown Ethnic Group Unknown Author Organization [facility] Address [address] [place] [address] Phone Social History date description facility [phone]
== END 2020-11-21 01:37 | disposition critical access hospital (66) ==
LOC: EMS 01:36
PROVIDERS: ATTEND Emergency Medicine
DX: S61.512A Laceration without foreign body of left wrist, initial encounter (principal); S61.511A Laceration without foreign body of right wrist, initial encounter; X78.9XXA Intentional self-harm by unspecified sharp object, initial encounter; R45.851 Suicidal ideations
CPT/HCPCS: A0425; A0429

== ENCOUNTER 2020-11-21 01:53 | Emergency (ER) | payer OTHER, MEDICAID ==
--- NOTE | 2020-11-21 01:58 | ED Physician Documentation ---
PD HPI MHE - Stated complaint Stated Complaint: MHE, ETOH - History obtained from History obtained from: EMS - History of Present Illness Primary symptom: Suicidal ideation, Self harm - cut, Depression Pain level now: 0 Recently seen: Not recently seen (T+R 2 months ago from this ED for unrelated c/o) - Additional information Additional information: ROCIO. Roommate had called 911. Patient has been drinking alcohol tonight and felt depressed mood; he told medics he has felt depressed for years but it was worse tonight. Patient self-inflicted lacerations with a knife to both wrists tonight. EMS reports that patient told them he cut himself to "feel something" but "said he wouldn't mind if he ". On my HPI, patient confirms this information. His answers are brief; he appears intoxicated and is drowsy Review of Systems Unable to obtain: Intoxicated (offers answers to some questions but uncertain as to reliability due to intoxication) PD PAST MEDICAL HISTORY - Past Medical History Cardiovascular: Hypertension Respiratory: None Neuro: None Endocrine/Autoimmune: None GI: None : Kidney stones HEENT: None Psych: None Musculoskeletal: None Derm: None - Past Surgical History Past Surgical History: Yes - Present Medications Home Medications: Ambulatory Orders Medication Instructions Recorded Confirmed Ibuprofen [Motrin] 800 mg PO Q8H PRN #30 tablet 04/02/19 11/12/19 Hydrocodone/Acetaminophen [[place] 1 each PO Q6H PRN #15 tablet 11/12/19 11/21/20 5-325 Tablet] Naproxen 500 mg PO BID #20 tablet 11/12/19 Famotidine [Pepcid] 20 mg PO DAILY #30 tablet 07/20/20 11/21/20 Ondansetron Odt [Zofran] 4 mg TL Q6H PRN #10 tablet 07/20/20 Oxycodone HCl/Acetaminophen 1 each PO Q6H PRN #20 tablet 07/20/20 [Percocet 5-325 mg Tablet] Sucralfate [Carafate] 1 gm PO TID #20 tablet 07/20/20 11/21/20 Ibuprofen [Motrin] 800 mg PO Q8H PRN #14 tab 09/24/20 Oxycodone HCl/Acetaminophen 1 - 2 each PO Q6H PRN #14 tab 09/24/20 [Percocet 5-325 mg Tablet] Penicillin V Potassium 500 mg PO Q6HR #40 tab 09/24/20 - Allergies Allergies/Adverse Reactions: Allergies Allergy/AdvReac Type Severity Reaction Status Date / Time No Known Drug Allergies Allergy Verified 11/21/20 01:58 - Social History Does the pt smoke?: No Smoking Status: Never smoker Does the pt drink ETOH?: Yes Does the pt have substance abuse?: No - Immunizations Immunizations are current?: Yes - POLST Patient has POLST: No PD ED PE NORMAL - Vitals Vital signs reviewed: Yes - General General: No acute distress, Well developed/nourished, Other (drowsy, answers questions with brief answers, falls asleep easily) - HEENT HEENT: Atraumatic, PERRL, EOMI - Cardiac Cardiac: RRR, No murmur - Respiratory Respiratory: No respiratory distress, Clear bilaterally - Abdomen Abdomen: Soft, Non tender - Extremities Extremities: Other (multiple linear lacerations to bilateral wrists, flexor surfaces. these are all superficial except for right wrist (see diagram below). old, healed linear scars noted to bilateral wrists) - Neuro Neuro: No motor deficit, No sensory deficit PD ED PE EXPANDED - Extremities MARTI UE/Hands Visual: 1 - laceration (3 cm length laceration) Results - Vitals Vitals: Vital Signs - 24 hr 11/21/20 11/21/20 11/21/20 01:58 02:03 03:06 Temperature 37.0 C 37 C 37 C Heart Rate 114 H 112 H 89 Respiratory 20 20 19 Rate Blood Pressure 172/104 H 172/104 H 150/89 H O2 Saturation 97 97 98 Oxygen O2 Source Room air - Labs Labs: Laboratory Tests 11/21/20 11/21/20 11/21/20 02:14 02:15 03:45 WBC 6.7 RBC 4.23 L Hgb 15.0 Hct 42.1 MCV 99.5 H MCH 35.5 H MCHC 35.6 RDW 11.1 L Plt Count 180 MPV 9.1 Neut # (Auto) 4.1 Lymph # (Auto) 1.9 [place] # (Auto) 0.4 Eos # (Auto) 0.2 Baso # (Auto) 0.1 Absolute Nucleated RBC 0.00 Nucleated RBC % 0.0 Sodium Potassium Chloride Carbon Dioxide Anion Gap BUN Creatinine Estimated GFR (MDRD) Glucose Calcium Total Bilirubin AST ALT Alkaline Phosphatase Total Protein Albumin Globulin Albumin/Globulin Ratio Lipase Urine Color YELLOW Urine Clarity CLEAR Urine pH 6.0 Ur Specific [place] <=1.005 Urine Protein NEGATIVE Urine Glucose (UA) NEGATIVE Urine Ketones NEGATIVE Urine Occult Blood SMALL H Urine Nitrite NEGATIVE Urine Bilirubin NEGATIVE Urine Urobilinogen 0.2 (NORMAL) Ur Leukocyte Esterase NEGATIVE Urine RBC 0-5 Urine WBC 0-3 Ur Squamous Epith Cells NONE SEEN Urine Bacteria None Seen Ur Microscopic Review INDICATED Urine Culture Comments NOT INDICATED Nasal Adenovirus (PCR) NOT DETECTED Nasal B. parapertussis DNA (PCR) NOT DETECTED Nasal Coronavir 229E PCR NOT DETECTED Nasal Coronavir HKU1 PCR NOT DETECTED Nasal Coronavir NL63 PCR NOT DETECTED Nasal Coronavir OC43 PCR NOT DETECTED Nasal Enterovir/Rhinovir PCR NOT DETECTED Nasal Influenza B PCR NOT DETECTED Nasal Influenza A PCR NOT DETECTED Nasal Parainfluen 1 PCR NOT DETECTED Nasal Parainfluen 2 PCR NOT DETECTED Nasal Parainfluen 3 PCR NOT DETECTED Nasal Parainfluen 4 PCR NOT DETECTED Nasal RSV (PCR) NOT DETECTED Nasal B.pertussis DNA PCR NOT DETECTED Nasal C.pneumoniae (PCR) NOT DETECTED [place] Human Metapneumo PCR NOT DETECTED Nasal M.pneumoniae (PCR) NOT DETECTED Nasal SARS-CoV-2 (PCR) NOT DETECTED Salicylates Urine Opiates Screen NEGATIVE Ur Oxycodone Screen NEGATIVE Urine Methadone Screen NEGATIVE Ur Propoxyphene Screen NEGATIVE Acetaminophen Ur Barbiturates Screen NEGATIVE Ur Tricyclics Screen NEGATIVE Ur Phencyclidine Scrn NEGATIVE Ur Amphetamine Screen NEGATIVE U Methamphetamines Scrn NEGATIVE U Benzodiazepines Scrn NEGATIVE Urine Cocaine Screen NEGATIVE U Cannabinoids Screen POSITIVE H Ethyl Alcohol 11/21/20 03:45 WBC RBC Hgb Hct MCV MCH MCHC RDW Plt Count MPV Neut # (Auto) Lymph # (Auto) [place] # (Auto) Eos # (Auto) Baso # (Auto) Absolute Nucleated RBC Nucleated RBC % Sodium 141 Potassium 3.1 L Chloride 101 Carbon Dioxide 26 Anion Gap 14.0 H BUN 5 L Creatinine 0.6 Estimated GFR (MDRD) 163 Glucose 119 H Calcium 8.4 L Total Bilirubin 1.4 H AST 145 H ALT 121 H Alkaline Phosphatase 68 Total Protein 7.3 Albumin 4.0 Globulin 3.3 Albumin/Globulin Ratio 1.2 Lipase 21 L Urine Color Urine Clarity Urine pH Ur Specific [place] Urine Protein Urine Glucose (UA) Urine Ketones Urine Occult Blood Urine Nitrite Urine Bilirubin Urine Urobilinogen Ur Leukocyte Esterase Urine RBC Urine WBC Ur Squamous Epith Cells Urine Bacteria Ur Microscopic Review Urine Culture Comments Nasal Adenovirus (PCR) Nasal B. parapertussis DNA (PCR) Nasal Coronavir 229E PCR Nasal Coronavir HKU1 PCR Nasal Coronavir NL63 PCR Nasal Coronavir OC43 PCR Nasal Enterovir/Rhinovir PCR Nasal Influenza B PCR Nasal Influenza A PCR Nasal Parainfluen 1 PCR Nasal Parainfluen 2 PCR Nasal Parainfluen 3 PCR Nasal Parainfluen 4 PCR Nasal RSV (PCR) Nasal B.pertussis DNA PCR Nasal C.pneumoniae (PCR) [place] Human Metapneumo PCR Nasal M.pneumoniae (PCR) Nasal SARS-CoV-2 (PCR) Salicylates < 6.0 Urine Opiates Screen Ur Oxycodone Screen Urine Methadone Screen Ur Propoxyphene Screen Acetaminophen < 10 L Ur Barbiturates Screen Ur Tricyclics Screen Ur Phencyclidine Scrn Ur Amphetamine Screen U Methamphetamines Scrn U Benzodiazepines Scrn Urine Cocaine Screen U Cannabinoids Screen Ethyl Alcohol 275.3 Procedures - Laceration (location) Upper extremity right Ventral Length in cm: 3 Wound type: Linear, Into subcut fat, Clean Neurovascular status: Sensory intact, Motor intact, Vascular intact Tendon involvement: Tendon intact Anesthesia: Lidocaine 1%, With bicarb Wound preparation: Chlorhexadine, Irrigated copiously NS, Wound explored Skin layer closure: Nylon, Running, Size #-0 - enter number (4-0) Other: Patient tolerated well, No complications, Neurovascular intact, Dressing applied, Tetanus UTD PD MEDICAL DECISION MAKING - ED course Complexity details: reviewed results, re-evaluated patient, considered differential, d/w patient ED course: patient is calm and cooperative but also intoxicated with serum ethanol level of .275. He will need several hours to sober and then can be reevaluated to assess whether he is suicidal or otherwise wants inpatient treatment for his depression. Care of patient turned over to oncoming ED physician at end of my shift. He will need the stitches removed from the right wrist laceration in 7-10 days
[2020-11-21 02:17] LABS: MUDS CUTOFF CONCENTRATIONS CUTOFF CONC BELOW:
[2020-11-21 02:18] LABS: BILIRUBIN,URINE NEGATIVE (NEGATIVE); CLARITY,URINE CLEAR (CLEAR); GLUCOSE, URINE (UA) NEGATIVE (NEGATIVE); KETONES,URINE (UA) NEGATIVE (NEGATIVE); LEUKOCYTE ESTERASE, URINE NEGATIVE (NEGATIVE); NITRITE,URINE NEGATIVE (NEGATIVE); OCCULT BLOOD,URINE SMALL (NEGATIVE); PROTEIN,URINE NEGATIVE (NEGATIVE); UROBILINOGEN,URINE 0.2 (NORMAL) E.U./dL (NORMAL)
[2020-11-21 02:25] LABS: BACTERIA,URINE None Seen /HPF (None Seen); RBC,URINE 0-5 /HPF (0-5); SQUAMOUS EPITHELIAL CELL,UR NONE SEEN (<= Few); WBC,URINE 0-3 /HPF (0-3)
[2020-11-21 02:38] LABS: AMPHETAMINE SCREEN,URINE NEGATIVE (NEGATIVE); BARBITURATE SCREEN,UR NEGATIVE (NEGATIVE); BENZODIAZEPINES SCREEN, URINE NEGATIVE (NEGATIVE); COCAINE SCREEN URINE NEGATIVE (NEGATIVE); METHADONE SCREEN, URINE NEGATIVE (NEGATIVE); METHAMPHETAMINES SCREEN, URINE NEGATIVE (NEGATIVE); OPIATE SCREEN, URINE NEGATIVE (NEGATIVE); OXYCODONE SCREEN, URINE NEGATIVE (NEGATIVE); PROPOXYPHENE SCREEN, URINE NEGATIVE (NEGATIVE); THC CANNABINOID SCREEN, URINE POSITIVE (NEGATIVE); TRICYCLIC ANTIDEPRESSANT,URINE NEGATIVE (NEGATIVE)
[2020-11-21 03:09] LABS: B. PARAPERTUSSIS- RESP PCR PAN NOT DETECTED; B. PERTUSSIS- RESP PCR PANEL NOT DETECTED; C. PNEUMONIAE- RESP PCR PANEL NOT DETECTED; CORONAVIRUS 229E-RESP PCR NOT DETECTED; CORONAVIRUS HKU1-RESP PCR NOT DETECTED; CORONAVIRUS NL63-RESP PCR NOT DETECTED; CORONAVIRUS OC43-RESP PCR NOT DETECTED; HUMAN METAPNEUMOVIRUS NOT DETECTED; INFLUENZA A- RESP PCR PANEL NOT DETECTED; INFLUENZA B - RESP PCR PANEL NOT DETECTED; M. PNEUMONIAE- RESP PCR PANEL NOT DETECTED; PARAINFLUENZA VIRUS 1 NOT DETECTED; PARAINFLUENZA VIRUS 2 NOT DETECTED; PARAINFLUENZA VIRUS 3 NOT DETECTED; PARAINFLUENZA VIRUS 4 NOT DETECTED; RHINOVIRUS/ENTEROVIRUS NOT DETECTED; RSV- RESP PCR PANEL NOT DETECTED; SARS-CoV-2 -RESP PCR PANEL NOT DETECTED
[2020-11-21 03:59] LABS: BASOPHILS # (AUTO) 0.1 10^3/uL (0.0-0.1); BASOPHILS % (AUTO) 0.9 %; EOSINOPHILS # (AUTO) 0.2 10^3/uL (0.0-0.7); EOSINOPHILS % (AUTO) 2.6 %; HCT - HEMATOCRIT 42.1 % (42.0-52.0); LYMPHOCYTES # (AUTO) 1.9 10^3/uL (1.5-3.5); LYMPHOCYTES % (AUTO) 28.3 %; MEAN CORPUSCULAR HEMOGLOBIN 35.5 pg (27.0-31.0); MEAN CORPUSCULAR HGB CONC 35.6 g/dL (32.0-36.0); MEAN CORPUSCULAR VOLUME 99.5 fL (80.0-94.0); MEAN PLATELET VOLUME 9.1 fL (7.4-11.4); MONOCYTES # (AUTO) 0.4 10^3/uL (0.0-1.0); MONOCYTES % (AUTO) 6.2 %; NEUTROPHILS # (AUTO) 4.1 10^3/uL (1.5-6.6); NEUTROPHILS % (AUTO) 61.7 %; PLT - PLATELET COUNT 180 10^3/uL (130-450); RED BLOOD COUNT 4.23 10^6/uL (4.70-6.10); RED CELL DISTRIBUTION WIDTH 11.1 % (12.0-15.0); WHITE BLOOD COUNT 6.7 x10^3/uL (4.8-10.8)
[2020-11-21 04:12] LABS: ACETAMINOPHEN < 10 ug/mL (10-30); ALBUMIN/GLOBULIN RATIO 1.2 (1.0-2.2); ALKALINE PHOSPHATASE 68 IU/L (42-121); ALT ALANINE AMINOTRANSFERASE 121 IU/L (10-60); AST ASPARTATE AMINOTRANSFERASE 145 IU/L (10-42); BILIRUBIN,TOTAL 1.4 mg/dL (0.2-1.0); BUN - BLOOD UREA NITROGEN 5 mg/dL (6-20); CALCIUM 8.4 mg/dL (8.5-10.3); CARBON DIOXIDE - CO2 26 mmol/L (21-32); CHLORIDE 101 mmol/L (101-111); CREATININE 0.6 mg/dL (0.6-1.2); ETOH - ETHANOL 275.3 mg/dL; GFR - MDRD 163 (>89); GLUCOSE 119 mg/dL (70-100); LIPASE 21 U/L (22-51); POTASSIUM 3.1 mmol/L (3.5-5.0); SALICYLATE < 6.0 mg/dL; SODIUM 141 mmol/L (135-145); TOTAL PROTEIN 7.3 g/dL (6.7-8.2)
[2020-11-21] MEDS ORDERED: BUFFERED LIDOCAINE 10 ML SYRINGE IU STA (04:54)
[2020-11-21] MEDS ORDERED: POTASSIUM CHLORIDE 20 MEQ TABLET PO STA (06:16)
[2020-11-21 12:09] VITALS: BP 151/88
--- NOTE | 2020-11-21 12:53 | ED Physician Documentation ---
ED Addendum - Addendum Addendum: 11/21/20 12:[address] Granados at shift change. Briefly this is a 25-year-old gentleman who was intoxicated with alcohol last night and cut his wrists. On repeat evaluation after clinical sobriety around 12:50 PM he is not suicidal and has no intent for self-harm. He feels safe going home and declines offer for inpatient hospitalization. We will have the nurse talk to him about outpatient resources for counseling and mental health care. He is advised to abstain from alcohol. Disposition: Discharge home Condition: Stable Diagnoses 1. Alcohol intoxication 2. Right wrist laceration
--- OUTSIDE RECORDS SUMMARY | 2020-11-25 02:23 | EXTERNAL MEDICAL SUMMARY RPT | Continuity of Care Document ---
:1995 Demographics Phone Unavailable Preferred Language Unknown Marital Status Unknown Adventist Affiliation Unknown Race Unknown Ethnic Group Unknown Author Organization [facility] Address [address] [place] [address] Phone Social History date description facility [phone]
== END 2020-11-21 13:42 | disposition home or self-care (01) ==
LOC: EDUNIT# → ED 01:53
DX: F10.929 Alcohol use, unspecified with intoxication, unspecified (principal); Y90.8 Blood alcohol level of 240 mg/100 ml or more; S61.511A Laceration without foreign body of right wrist, initial encounter; S61.512A Laceration without foreign body of left wrist, initial encounter; X78.8XXA Intentional self-harm by other sharp object, initial encounter; F32.9 Major depressive disorder, single episode, unspecified; I10 Essential (primary) hypertension; Z20.822 Contact with and (suspected) exposure to COVID-19
CPT/HCPCS: 0202U; 12002; 36415; 80053; 80306; 80307; 80320; 80329; 81001; 83690; 85025; 99281; 99283; A9270; 81003; 87086

== ENCOUNTER 2020-11-22 14:59 | Emergency (ER) | payer OTHER, MEDICAID ==
[2020-11-22 15:21] LABS: BASOPHILS % (AUTO) 0.5 %; EOSINOPHILS # (AUTO) 0.1 10^3/uL (0.0-0.7); HGB - HEMOGLOBIN 16.1 g/dL (14.0-18.0); LYMPHOCYTES # (AUTO) 0.9 10^3/uL (1.5-3.5); LYMPHOCYTES % (AUTO) 10.1 %; MEAN CORPUSCULAR HEMOGLOBIN 35.3 pg (27.0-31.0); MEAN CORPUSCULAR HGB CONC 35.8 g/dL (32.0-36.0); MEAN CORPUSCULAR VOLUME 98.7 fL (80.0-94.0); MEAN PLATELET VOLUME 9.3 fL (7.4-11.4); MONOCYTES # (AUTO) 0.5 10^3/uL (0.0-1.0); MONOCYTES % (AUTO) 5.5 %; NEUTROPHILS # (AUTO) 7.2 10^3/uL (1.5-6.6); NEUTROPHILS % (AUTO) 82.6 %; PLT - PLATELET COUNT 191 10^3/uL (130-450); RED BLOOD COUNT 4.56 10^6/uL (4.70-6.10); RED CELL DISTRIBUTION WIDTH 10.9 % (12.0-15.0); WHITE BLOOD COUNT 8.7 x10^3/uL (4.8-10.8)
--- NOTE | 2020-11-22 15:36 | ED Physician Documentation ---
PD HPI MHE - Stated complaint Stated Complaint: MHE - Chief complaint Chief Complaint: MHE - History obtained from History obtained from: Patient - History of Present Illness Primary symptom: Suicidal ideation Timing - onset: Other (several days) Pain level max: 0 Pain level now: 0 Contributing factors: Substance abuse - ETOH (states drinks regularly, no etoh last night or today.) Similar symptoms before: Diagnosis (depression) Recently seen: Emergency Dept (yesterday for same.) - Additional information Additional information: Patient states that he is not actively feeling suicidal today, but his friends a re concerned so asked him to come back to the emergency department. Review of Systems Ten Systems: 10 systems reviewed and negative Constitutional: denies: Fever, Chills Respiratory: denies: Cough GI: denies: Nausea, Vomiting, Diarrhea Skin: denies: Rash Musculoskeletal: denies: Neck pain, Back pain Neurologic: denies: Headache PD PAST MEDICAL HISTORY - Past Medical History Cardiovascular: Hypertension Respiratory: None Neuro: None Endocrine/Autoimmune: None GI: None : Kidney stones HEENT: None Psych: None Musculoskeletal: None Derm: None - Past Surgical History Past Surgical History: Yes - Allergies Allergies/Adverse Reactions: Allergies Allergy/AdvReac Type Severity Reaction Status Date / Time No Known Drug Allergies Allergy Verified 11/21/20 01:58 - Social History Does the pt smoke?: No Smoking Status: Never smoker Does the pt drink ETOH?: Yes Does the pt have substance abuse?: Yes Substance Use and Type: Marijuana - Immunizations Immunizations are current?: Yes - POLST Patient has POLST: No PD ED PE NORMAL - Vitals Vital signs reviewed: Yes - General General: Alert and oriented X 3, No acute distress - HEENT HEENT: PERRL, Moist mucous membranes - Neck Neck: Supple, no meningeal sign - Cardiac Cardiac: RRR - Respiratory Respiratory: No respiratory distress, Clear bilaterally - Abdomen Abdomen: Soft, Non tender, Non distended - Derm Derm: Warm and dry - Extremities Extremities: No edema, No calf tenderness / cord - Neuro Neuro: Alert and oriented X 3, 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, No motor deficit, No sensory deficit, Normal speech - Psych Psych: Normal mood, Normal affect Results - Vitals Vitals: Vital Signs - 24 hr 11/22/20 15:00 Temperature 36.2 C L Heart Rate 104 H Respiratory 15 Rate Blood Pressure 132/68 H O2 Saturation 99 Oxygen O2 Source Room air - Labs Labs: Laboratory Tests 11/22/20 11/22/20 11/22/20 15:16 15:16 15:16 WBC 8.7 RBC 4.56 L Hgb 16.1 Hct 45.0 MCV 98.7 H MCH 35.3 H MCHC 35.8 RDW 10.9 L Plt Count 191 MPV 9.3 Neut # (Auto) 7.2 H Lymph # (Auto) 0.9 L [place] # (Auto) 0.5 Eos # (Auto) 0.1 Baso # (Auto) 0.0 Absolute Nucleated RBC 0.00 Nucleated RBC % 0.0 Sodium 136 Potassium 3.3 L Chloride 99 L Carbon Dioxide 25 Anion Gap 12.0 BUN 7 Creatinine 0.7 Estimated GFR (MDRD) 136 Glucose 134 H Calcium 9.2 Magnesium Total Bilirubin 3.2 H AST 95 H ALT 98 H Alkaline Phosphatase 73 Total Protein 7.7 Albumin 4.2 Globulin 3.5 Albumin/Globulin Ratio 1.2 Lipase 23 TSH 2.03 Urine Color Urine Clarity Urine pH Ur Specific [place] Urine Protein Urine Glucose (UA) Urine Ketones Urine Occult Blood Urine Nitrite Urine Bilirubin Urine Urobilinogen Ur Leukocyte Esterase Ur Microscopic Review Urine Culture Comments Nasal Adenovirus (PCR) Nasal B. parapertussis DNA (PCR) Nasal Coronavir 229E PCR Nasal Coronavir HKU1 PCR Nasal Coronavir NL63 PCR Nasal Coronavir OC43 PCR Nasal Enterovir/Rhinovir PCR Nasal Influenza B PCR Nasal Influenza A PCR Nasal Parainfluen 1 PCR Nasal Parainfluen 2 PCR Nasal Parainfluen 3 PCR Nasal Parainfluen 4 PCR Nasal RSV (PCR) Nasal B.pertussis DNA PCR Nasal C.pneumoniae (PCR) [place] Human Metapneumo PCR Nasal M.pneumoniae (PCR) Nasal SARS-CoV-2 (PCR) Salicylates < 6.0 Urine Opiates Screen Ur Oxycodone Screen Urine Methadone Screen Ur Propoxyphene Screen Acetaminophen < 10 L Ur Barbiturates Screen Ur Tricyclics Screen Ur Phencyclidine Scrn Ur Amphetamine Screen U Methamphetamines Scrn U Benzodiazepines Scrn Urine Cocaine Screen U Cannabinoids Screen Ethyl Alcohol < 5.0 11/22/20 11/22/20 11/22/20 15:16 15:35 17:56 WBC RBC Hgb Hct MCV MCH MCHC RDW Plt Count MPV Neut # (Auto) Lymph # (Auto) [place] # (Auto) Eos # (Auto) Baso # (Auto) Absolute Nucleated RBC Nucleated RBC % Sodium Potassium Chloride Carbon Dioxide Anion Gap BUN Creatinine Estimated GFR (MDRD) Glucose Calcium Magnesium 1.6 L Total Bilirubin AST ALT Alkaline Phosphatase Total Protein Albumin Globulin Albumin/Globulin Ratio Lipase TSH Urine Color DARK YELLOW Urine Clarity CLEAR Urine pH 7.0 Ur Specific [place] 1.015 Urine Protein TRACE Urine Glucose (UA) NEGATIVE Urine Ketones TRACE Urine Occult Blood TRACE-INTA Urine Nitrite NEGATIVE Urine Bilirubin SMALL H Urine Urobilinogen 4 H Ur Leukocyte Esterase NEGATIVE Ur Microscopic Review NOT INDICATED Urine Culture Comments NOT INDICATED Nasal Adenovirus (PCR) NOT DETECTED Nasal B. parapertussis DNA (PCR) NOT DETECTED Nasal Coronavir 229E PCR NOT DETECTED Nasal Coronavir HKU1 PCR NOT DETECTED Nasal Coronavir NL63 PCR NOT DETECTED Nasal Coronavir OC43 PCR NOT DETECTED Nasal Enterovir/Rhinovir PCR NOT DETECTED Nasal Influenza B PCR NOT DETECTED Nasal Influenza A PCR NOT DETECTED Nasal Parainfluen 1 PCR NOT DETECTED Nasal Parainfluen 2 PCR NOT DETECTED Nasal Parainfluen 3 PCR NOT DETECTED Nasal Parainfluen 4 PCR NOT DETECTED Nasal RSV (PCR) NOT DETECTED Nasal B.pertussis DNA PCR NOT DETECTED Nasal C.pneumoniae (PCR) NOT DETECTED [place] Human Metapneumo PCR NOT DETECTED Nasal M.pneumoniae (PCR) NOT DETECTED Nasal SARS-CoV-2 (PCR) NOT DETECTED Salicylates Urine Opiates Screen NEGATIVE Ur Oxycodone Screen NEGATIVE Urine Methadone Screen NEGATIVE Ur Propoxyphene Screen NEGATIVE Acetaminophen Ur Barbiturates Screen NEGATIVE Ur Tricyclics Screen NEGATIVE Ur Phencyclidine Scrn NEGATIVE Ur Amphetamine Screen NEGATIVE U Methamphetamines Scrn NEGATIVE U Benzodiazepines Scrn NEGATIVE Urine Cocaine Screen NEGATIVE U Cannabinoids Screen POSITIVE H Ethyl Alcohol PD MEDICAL DECISION MAKING - ED course Complexity details: reviewed results, re-evaluated patient, considered differential, d/w patient ED course: Telepsychiatry was consulted, Dr. Dean, she recommends inpatient hospitalization and stabilization. Patient is agreeable to this. We will seek out inpatient care for the patient. Patient will be signed out to the oncoming emergency department physician awaiting placement. Medically clear for psychiatric care. Magnesium and potassium replaced This document was made in part using voice recognition software. While efforts are made to proofread this document, sound alike and grammatical errors may occur. Departure - Departure Clinical Impression: Suicidal ideation Depression Qualifiers: Depression Type: unspecified Qualified Code(s): F32.9 - Major depressive disorder, single episode, unspecified Condition: Stable
[2020-11-22 15:37] LABS: ACETAMINOPHEN < 10 ug/mL (10-30); ALBUMIN 4.2 g/dL (3.2-5.5); ALBUMIN/GLOBULIN RATIO 1.2 (1.0-2.2); ALKALINE PHOSPHATASE 73 IU/L (42-121); ALT ALANINE AMINOTRANSFERASE 98 IU/L (10-60); AST ASPARTATE AMINOTRANSFERASE 95 IU/L (10-42); BILIRUBIN,TOTAL 3.2 mg/dL (0.2-1.0); BUN - BLOOD UREA NITROGEN 7 mg/dL (6-20); CALCIUM 9.2 mg/dL (8.5-10.3); CARBON DIOXIDE - CO2 25 mmol/L (21-32); CHLORIDE 99 mmol/L (101-111); CREATININE 0.7 mg/dL (0.6-1.2); ETOH - ETHANOL < 5.0 mg/dL; GFR - MDRD 136 (>89); GLUCOSE 134 mg/dL (70-100); LIPASE 23 U/L (22-51); POTASSIUM 3.3 mmol/L (3.5-5.0); SALICYLATE < 6.0 mg/dL; SODIUM 136 mmol/L (135-145); TOTAL PROTEIN 7.7 g/dL (6.7-8.2)
[2020-11-22 15:38] LABS: MUDS CUTOFF CONCENTRATIONS CUTOFF CONC BELOW:
[2020-11-22 15:41] LABS: GLUCOSE, URINE (UA) NEGATIVE (NEGATIVE); KETONES,URINE (UA) TRACE mg/dL (NEGATIVE); LEUKOCYTE ESTERASE, URINE NEGATIVE (NEGATIVE); NITRITE,URINE NEGATIVE (NEGATIVE); OCCULT BLOOD,URINE TRACE-INTA (NEGATIVE); PROTEIN,URINE TRACE mg/dL (NEGATIVE); UROBILINOGEN,URINE 4 E.U./dL (NORMAL)
[2020-11-22 15:44] LABS: BILIRUBIN,URINE SMALL (NEGATIVE); CLARITY,URINE CLEAR (CLEAR); ICTOTEST,URINE POSITIVE
[2020-11-22 15:51] LABS: AMPHETAMINE SCREEN,URINE NEGATIVE (NEGATIVE); BARBITURATE SCREEN,UR NEGATIVE (NEGATIVE); BENZODIAZEPINES SCREEN, URINE NEGATIVE (NEGATIVE); COCAINE SCREEN URINE NEGATIVE (NEGATIVE); METHADONE SCREEN, URINE NEGATIVE (NEGATIVE); METHAMPHETAMINES SCREEN, URINE NEGATIVE (NEGATIVE); OPIATE SCREEN, URINE NEGATIVE (NEGATIVE); OXYCODONE SCREEN, URINE NEGATIVE (NEGATIVE); PROPOXYPHENE SCREEN, URINE NEGATIVE (NEGATIVE); THC CANNABINOID SCREEN, URINE POSITIVE (NEGATIVE); TRICYCLIC ANTIDEPRESSANT,URINE NEGATIVE (NEGATIVE)
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
[2020-11-22] MEDS ORDERED: LORazepam 1 MG TABLET PO STA (18:17)
[2020-11-22 19:00] LABS: B. PARAPERTUSSIS- RESP PCR PAN NOT DETECTED; B. PERTUSSIS- RESP PCR PANEL NOT DETECTED; C. PNEUMONIAE- RESP PCR PANEL NOT DETECTED; CORONAVIRUS 229E-RESP PCR NOT DETECTED; CORONAVIRUS HKU1-RESP PCR NOT DETECTED; CORONAVIRUS NL63-RESP PCR NOT DETECTED; CORONAVIRUS OC43-RESP PCR NOT DETECTED; HUMAN METAPNEUMOVIRUS NOT DETECTED; INFLUENZA A- RESP PCR PANEL NOT DETECTED; INFLUENZA B - RESP PCR PANEL NOT DETECTED; M. PNEUMONIAE- RESP PCR PANEL NOT DETECTED; PARAINFLUENZA VIRUS 1 NOT DETECTED; PARAINFLUENZA VIRUS 2 NOT DETECTED; PARAINFLUENZA VIRUS 3 NOT DETECTED; PARAINFLUENZA VIRUS 4 NOT DETECTED; RHINOVIRUS/ENTEROVIRUS NOT DETECTED; RSV- RESP PCR PANEL NOT DETECTED; SARS-CoV-2 -RESP PCR PANEL NOT DETECTED
[2020-11-22] MEDS ORDERED: OLANZapine ODT 5 MG TABLET TL STA (19:18)
[2020-11-22] MEDS ORDERED: MAGNESIUM OXIDE 400 MG TABLET PO STA (20:46)
[2020-11-22] MEDS ORDERED: POTASSIUM CHLORIDE 20 MEQ TABLET PO STA (20:46)
[2020-11-22] MEDS ORDERED: METOPROLOL TARTRATE 50 MG TABLET PO STA ×2 (21:15→21:19)
--- NOTE | 2020-11-22 22:09 | ED Physician Documentation ---
ED Addendum - Addendum Addendum: 11/22/20 22:08 EKG 2204 HR 56, sinus rhythm, borderline short PA. LVH. QTc [address]
[2020-11-22 22:37] VITALS: BP 126/60
--- NOTE | 2020-11-23 01:00 | ED Physician Documentation ---
ED Addendum - Addendum Addendum: 11/23/20 00:59 The patient remains rested here in the ER without any acute complaints. I had assumed care of the patient at the time of his labs and assessment being evaluated by psychiatric facilities. The patient is accepted by [facility] and he is agreeable to going there. The patient will be transferred by BLS to ensure safety on route. Disposition patient is transferred to psychiatric facility in stable condition Diagnoses: 1. Depression 2. Suicidal ideation
--- OUTSIDE RECORDS SUMMARY | 2020-11-25 02:45 | EXTERNAL MEDICAL SUMMARY RPT | Continuity of Care Document ---
:1995 Demographics Phone Unavailable Preferred Language Unknown Marital Status Unknown Baptist Affiliation Unknown Race Unknown Ethnic Group Unknown Author Organization [facility] Address [address] [place] [address] Phone Social History date description facility [phone]
== END 2020-11-23 02:50 ==
LOC: ED 14:59
DX: F32.9 Major depressive disorder, single episode, unspecified (principal); R45.851 Suicidal ideations; F43.10 Post-traumatic stress disorder, unspecified; I10 Essential (primary) hypertension; Z20.822 Contact with and (suspected) exposure to COVID-19
CPT/HCPCS: 0202U; 36415; 80053; 80306; 80307; 80320; 80329; 81003; 83690; 83735; 84443; 85025; 93005; 99283; 99285; A9270; G0426; J8499; Q3014; 81001; 87086

== ENCOUNTER 2022-08-22 19:04 | Emergency (ER) | payer MEDICAID, OTHER ==
[2022-08-22 19:27] LABS: BASOPHILS # (AUTO) 0.1 10^3/uL (0.0-0.1); BASOPHILS % (AUTO) 0.6 %; EOSINOPHILS # (AUTO) 0.2 10^3/uL (0.0-0.7); EOSINOPHILS % (AUTO) 1.6 %; HCT - HEMATOCRIT 43.7 % (42.0-52.0); HGB - HEMOGLOBIN 15.4 g/dL (14.0-18.0); LYMPHOCYTES # (AUTO) 1.2 10^3/uL (1.5-3.5); LYMPHOCYTES % (AUTO) 12.8 %; MEAN CORPUSCULAR HEMOGLOBIN 33.8 pg (27.0-31.0); MEAN CORPUSCULAR HGB CONC 35.2 g/dL (32.0-36.0); MEAN CORPUSCULAR VOLUME 95.8 fL (80.0-94.0); MEAN PLATELET VOLUME 9.1 fL (7.4-11.4); MONOCYTES # (AUTO) 0.6 10^3/uL (0.0-1.0); MONOCYTES % (AUTO) 5.9 %; NEUTROPHILS # (AUTO) 7.6 10^3/uL (1.5-6.6); NEUTROPHILS % (AUTO) 78.7 %; PLT - PLATELET COUNT 189 10^3/uL (130-450); RED BLOOD COUNT 4.56 10^6/uL (4.70-6.10); RED CELL DISTRIBUTION WIDTH 11.4 % (12.0-15.0); WHITE BLOOD COUNT 9.6 x10^3/uL (4.8-10.8)
--- OUTSIDE RECORDS SUMMARY | 2022-08-22 19:30 | EXTERNAL MEDICAL SUMMARY RPT | Continuity of Care Document ---
:1995 Author Organization [facility] Address [address] [place] [address] Phone Care Team Providers Name Role Phone Unavailable Unavailable Unavailable Vel Loredo Pa-C Unavailable Unavailable Allergies No information. Encounters No information. Functional Status No information. Immunizations No information. Medications date description facility 2022-06-24 00:00 buspirone All 2022 00:00 buspirone All 2022-06-24 00:00 trazodone All 2022 00:00 trazodone All 2022-06-24 00:00 buspirone All 2022 00:00 buspirone All 2022-06-24 00:00 trazodone All 2022 00:00 trazodone All 2022-06-24 00:00 buspirone All 2022 00:00 buspirone All 2022-06-24 00:00 trazodone All 2022 00:00 trazodone All 2022-06-24 00:00 trazodone All 2022 00:00 trazodone All 2022-06-24 00:00 buspirone All 2022 00:00 buspirone All Problems date description facility 2022-06-24 00:00 Pain in throat All 2022-06-24 00:00 Acute pharyngitis All 2022-06-24 00:00 Acute upper respiratory infections of u nspecified site All 2022-06-24 00:00 Upper respiratory infection All 2022-06-24 00:00 Cough All 2022-06-24 00:00 Acute pharyngitis, unspecified All 2022-06-24 00:00 Acute upper respiratory infection, unsp ecified All 2022-06-24 00:00 Other specified cough All Procedures date description facility 2022-06-24 00:00 Visit Code Hold All 2022-06-24 00:00 POC STREP TEST All 2022-06-24 00:00 COVID, FLU A+B Antigen (In Clinic Free Test) All Results/Labs test date author facility value unit interpret ation Result panel 1 (unknown) (no date) (unknown) All (no value) (units unknown ) (unknown) Result panel 2 (unknown) (no date) (unknown) All (no value) (units unknown ) (unknown) Social History date description facility 2022-06-24 00:00 Unknown if ever smoked All 2022 00:00 Unknown if ever smoked All Vital Signs date measurement value units 2022-06-24 00:00 BMI 38.51 kg/m2 2022-06-24 00:00 BP_diastolic 86 mmHg 2022-06-24 00:00 BP_systolic 153 mmHg 2022-06-24 00:00 heart_rate 92 /min 2022-06-24 00:00 height_metric 170.18 cm 2022-06-24 00:00 height_standard 67 in 2022-06-24 00:00 respiration_rate 18 /min 2022-06-24 00:00 temperature_metric 37.11 C 2022-06-24 00:00 temperature_standard 98.8 F 2022-06-24 00:00 weight_metric 111.13 kg 2022-06-24 00:00 weight_standard 245 lb
[2022-08-22 19:39] LABS: ALBUMIN/GLOBULIN RATIO 1.1 (1.0-2.2); BILIRUBIN,TOTAL 1.7 mg/dL (0.2-1.0); CALCIUM 8.5 mg/dL (8.5-10.3); CREATININE 0.6 mg/dL (0.6-1.2); POTASSIUM 3.3 mmol/L (3.5-5.0); TOTAL PROTEIN 7.6 g/dL (6.7-8.2)
[2022-08-22 19:45] LABS: BILIRUBIN,URINE NEGATIVE (NEGATIVE); GLUCOSE, URINE (UA) NEGATIVE (NEGATIVE); KETONES,URINE (UA) NEGATIVE (NEGATIVE); LEUKOCYTE ESTERASE, URINE NEGATIVE (NEGATIVE); NITRITE,URINE NEGATIVE (NEGATIVE); OCCULT BLOOD,URINE NEGATIVE (NEGATIVE); PH,URINE 7.5 PH (5.0-7.5); PROTEIN,URINE TRACE mg/dL (NEGATIVE); UROBILINOGEN,URINE 4 E.U./dL (NORMAL)
[2022-08-22 20:02] LABS: CLARITY,URINE CLEAR (CLEAR)
[2022-08-22] MEDS ORDERED: SODIUM CHLORIDE 0.9% 1,000 ML IV STA (20:03)
[2022-08-22] MEDS ORDERED: KETOROLAC 30 MG/ML VIAL IVP STA (20:03)
[2022-08-22] MEDS ORDERED: HYDROmorphone 1 MG/ML CARPUJECT IVP STA ×2 (20:03→21:49)
[2022-08-22] MEDS ORDERED: LIDOCAINE-MPF 2% 8 ML in SODIUM CHLORIDE 0.9% 50 ML IV STA (20:03)
[2022-08-22] MEDS ORDERED: LIDOCAINE-MPF 2% 5 ML VIAL ONE (20:09)
[2022-08-22] MEDS ORDERED: ONDANSETRON 4 MG/2 ML VIAL IVP STA (20:15)
--- NOTE | 2022-08-22 21:39 | CT Report ---
PROCEDURE: ABDOMEN/PELVIS WO INDICATIONS: R flank pain, h/o renal stones TECHNIQUE: Noncontrast 5 mm thick sections acquired from the diaphragms to the symphysis. 5 mm coronal and sagi ttal reformats were then performed. For radiation dose reduction, the following was used: automated exposure control, adjustment of mA and/or kV according to patient size. COMPARISON: CT KUB 07/20/2020. FINDINGS: Image quality: Excellent. Lung bases:The visualized lung bases are clear. Heart: Heart is normal in size. URINARY: Right Kidney and Ureter: No stones or hydronephrosis. No hydroureter. Left Kidney and Ureter: There is a nonspecific and stone measuring up to 0.4 cm within the inferior pole the left kidney. No hydronephrosis. No hydroureter. Bladder: Normal wall thickness. No stones. ABDOMEN: Liver:There is diffuse hypoattenuation of the liver consistent with fatty infiltration. Gallbladder: Within normal limits without calcified gallstones. Biliary ducts: No biliary ductal dilatation. Pancreas: Unremarkable. Spleen:The spleen is enlarged, measuring up to 14.3 cm. Adrenal Glands: No adrenal nodules. Stomach and Bowel: Stomach, small bowel loops, and colon are normal in caliber and wall thickness. T he appendix is normal in appearance. Peritoneum: No abnormal intraperitoneal fluid. No free air. Ventral Wall: No hernia. Abdominal Nodes: No retroperitoneal or mesenteric adenopathy by size criteria. Vessels: Aorta and inferior vena cava are normal in size. PELVIS: Pelvic Organs: Unremarkable. Pelvic Nodes: No enlarged lymph nodes. Miscellaneous: No inguinal hernias identified. Bones: Visualized osseous structures demonstrate no suspicious focal lesions. IMPRESSION: 1. Left nephrolithiasis without evidence of obstructive uropathy. 2. No evidence of appendicitis. 3. Hepatic steatosis. Reviewed by: Ray Martinez MD on 08/22/2022 9:37 PM PST Approved by: Ray Martinez MD on 08/22/2022 9:37 PM PST Station ID: [id number]
--- NOTE | 2022-08-22 21:47 | ED Physician Documentation ---
PD HPI ABD PAIN - Stated complaint Stated Complaint: KIDNEY STONE PX - Chief complaint Chief Complaint: Abd Pain - History obtained from History obtained from: Patient - History of Present Illness Timing - onset: How many days ago (2) Timing - duration: Days (2) Timing - details: Gradual onset Pain level max: 9 Pain level now: 9 Quality: Aching, Pain Location: RUQ, RLQ Radiation: Right flank Improved by: Other (nothing) Worsened by: Other (movement, palpation) Associated symptoms: Nausea. No: Fever, Vomiting, Hematemesis, Diarrhea, Constipation, Melena, Hematochezia, Dysuria, Hematuria, Chest pain - Additional information Additional information: Patient has 2 days of right flank pain. He states similar to prior kidney stones. He states he has had lithotripsy several times in the past for kidney stones. No fevers. No vomiting. No blood in the urine. No diarrhea or constipation. Review of Systems Constitutional: denies: Fever, Chills GI: denies: Vomiting, Diarrhea Skin: denies: Rash Musculoskeletal: denies: Neck pain, Back pain Neurologic: denies: Headache PD PAST MEDICAL HISTORY - Past Medical History Past Medical History: Yes Cardiovascular: Hypertension Respiratory: None Neuro: None Endocrine/Autoimmune: None GI: None : Kidney stones HEENT: None Psych: None Musculoskeletal: None Derm: None - Past Surgical History Past Surgical History: Yes - Present Medications Home Medications: Ambulatory Orders Medication Instructions Recorded Confirmed oxyCODONE [Roxicodone] 5 - 10 mg PO Q6H PRN #14 tablet 08/22/22 MDD 6 - Allergies Allergies/Adverse Reactions: Allergies Allergy/AdvReac Type Severity Reaction Status Date / Time No Known Drug Allergies Allergy Verified 08/22/22 19:08 - Social History Does the pt smoke?: No Smoking Status: Never smoker Does the pt drink ETOH?: Yes Does the pt have substance abuse?: Yes - Immunizations Immunizations are current?: Yes - POLST Patient has POLST: No PD ED PE NORMAL - Vitals Vital signs reviewed: Yes - General General: Alert and oriented X 3, No acute distress - HEENT HEENT: Moist mucous membranes - Neck Neck: Supple, no meningeal sign - Cardiac Cardiac: RRR - Respiratory Respiratory: No respiratory distress, Clear bilaterally - Abdomen Abdomen: Soft, Non distended, Other (Diffusely tender to palpation without peritoneal signs.) - Back Back: No CVA TTP, No spinal TTP - Derm Derm: Warm and dry - Extremities Extremities: No edema - Neuro Neuro: Alert and oriented X 3 - Psych Psych: Normal mood, Normal affect Results - Vitals Vitals: Vital Signs - 24 hr 08/22/22 08/22/22 22:20 22:39 Heart Rate 82 90 Respiratory 22 31 H Rate Blood Pressure 162/89 H 147/93 H O2 Saturation 99 97 Oxygen O2 Source Room air - Labs Labs: Laboratory Tests 08/22/22 08/22/22 08/22/22 19:21 19:21 19:30 WBC 9.6 RBC 4.56 L Hgb 15.4 Hct 43.7 MCV 95.8 H MCH 33.8 H MCHC 35.2 RDW 11.4 L Plt Count 189 MPV 9.1 Neut # (Auto) 7.6 H Lymph # (Auto) 1.2 L [place] # (Auto) 0.6 Eos # (Auto) 0.2 Baso # (Auto) 0.1 Absolute Nucleated RBC 0.00 Nucleated RBC % 0.0 Sodium 131 L Potassium 3.3 L Chloride 95 L Carbon Dioxide 26 Anion Gap 10.0 BUN 6 Creatinine 0.6 Estimated GFR (MDRD) 160 Glucose 109 H Calcium 8.5 Total Bilirubin 1.7 H AST 158 H ALT 110 H Alkaline Phosphatase 83 Total Protein 7.6 Albumin 4.0 Globulin 3.6 Albumin/Globulin Ratio 1.1 Lipase 32 Urine Color DARK YELLOW Urine Clarity CLEAR Urine pH 7.5 Ur Specific [place] 1.015 Urine Protein TRACE Urine Glucose (UA) NEGATIVE Urine Ketones NEGATIVE Urine Occult Blood NEGATIVE Urine Nitrite NEGATIVE Urine Bilirubin NEGATIVE Urine Urobilinogen 4 H Ur Leukocyte Esterase NEGATIVE Ur Microscopic Review NOT INDICATED Urine Culture Comments NOT INDICATED - Rads (name of study) CT abdomen pelvis Radiology: Final report received, See rad report PD Medical Decision Making - ED course Complexity details: reviewed results, re-evaluated patient, considered differential, d/w patient ED course: 27-year-old male presents the emergency with right-sided abdominal pain. No acute findings on CT scan. No significant lab abnormalities. No evidence of ureteral stone. CBC is relatively unremarkable. CMP shows a minimal elevation of his bilirubin, AST and ALT, but he states he does drink alcohol regularly. Counseled regarding alcohol cessation. Sodium mildly low as well is mildly low chloride and potassium. Pain well controlled. We will have him follow-up with his doctor for further care. No evidence of acute cholecystitis. Patient is very well-appearing, nontoxic. Afebrile. Tolerating p.o. without difficulty. Patient counseled regarding signs and symptoms for which I believe and urgent re-evaluation would be necessary. Patient with good understanding of and agreement to plan and is comfortable going home at this time This document was made in part using voice recognition software. While efforts are made to proofread this document, sound alike and grammatical errors may occur. Departure - Departure Disposition: 01 Home, Self Care Clinical Impression: Elevated liver function tests Abdominal pain Qualifiers: Abdominal location: generalized Qualified Code(s): R10.84 - Generalized abdominal pain Condition: Good Instructions: ED Abdominal Pain Unkn Cause Male Follow-Up: your,doctor in 3 days [Other] Prescriptions: oxyCODONE [Roxicodone] 5 - 10 mg PO Q6H PRN #14 tablet MDD 6 PRN Reason: pain Comments: The cause of your symptoms is unclear today. Your CT scan does not show any acute abnormalities. Your ultrasound does show some recanalization of your u mbilical vein, this can be seen in the setting of liver damage so should be followed up closely with your doctor. You should also limit or stop alcohol use entirely as it does appear that you have some liver damage. You should have your liver function test rechecked with your doctor this week. Please return if you worsen Your prescription was sent to [facility] in [place]. I am prescribing a short course of narcotic pain medication for you. These are potentially dangerous and addictive medications that should be used carefully. These medications may constipate you. Take an idti-sgl-sasrrgp stool softener (docusate) twice daily with plenty of water while taking these medications. If you go 24 hours without a bowel movement, take gejw-vah-updsstc miralax, per package instructions. Do not drink or drive while taking these medications. If you received narcotic or sedating medications while in the emergency department, do not drive for 24 hours. Store this medication in a safe, secure place and out of reach of children. It is a violation of federal law to give or sell this medication to another person or to use in a manner other than prescribed. The ED will not refill narcotic prescriptions, including prescriptions lost or stolen. To dispose of unwanted medications: 1. [facility] at [address] in [place] has a medication drop box. They accept prescription medications (in pill form) Monday through Monday 9:00 a.m. to 5:00 p.m. 2. The [employer] [facility] accepts prescription medications (in pill form only) for disposal year round. Call for more information. 3. Contact the [facility] for the next [facility] sponsored prescription drug collection event. , [phone], or [phone]; Discharge Date/Time: 08/22/22 22:47
[2022-08-22] MEDS ORDERED: oxyCODONE 5 MG TABLET PO STA (22:24)
[2022-08-22 22:39] VITALS: BP 147/93
--- NOTE | 2022-08-22 23:35 | Ultrasound Report ---
PROCEDURE: Abdomen Limited INDICATIONS: elevated LFT, abd pain TECHNIQUE: Real-time focused scanning was performed of the abdomen, with image documentation. COMPARISON: CT abdomen pelvis 08/22/2022 FINDINGS: The liver is enlarged, measuring up to approximately 4.6 cm. There is diffusely increased hepatic ech ogenicity with coarse sonographic echotexture consistent with fatty infiltration. There is a recanali zed periumbilical vein noted. The gallbladder is distended with a small amount of dependent biliary sludge. No discrete gallstones. No definite gallbladder wall thickening or pericholecystic fluid. Intrahepatic biliary ducts not well seen. No extrahepatic biliary ductal dilatation. Pancreas not well seen sonographically. Right kidney measures 12.5 cm. No hydronephrosis. IMPRESSION: 1. Distention of the gallbladder without cholelithiasis, all bladder wall thickening, or pericholecys tic fluid. The findings are nonspecific but acalculous cholecystitis or gallbladder dysfunction canno t be excluded. Recommend correlation clinically and further evaluation with HIDA scan if indicated. 2. Hepatomegaly with increased echogenicity compatible with steatosis. 3. Recanalized paraumbilical vein is nonspecific but suggestive of portal hypertension. Reviewed by: Ray Martinez MD on 08/22/2022 11:33 PM PST Approved by: Ray Martinez MD on 08/22/2022 11:33 PM PST Station ID: [id number]
== END 2022-08-22 22:47 | disposition home or self-care (01) ==
LOC: ED 19:04
DX: R10.84 Generalized abdominal pain (principal); R79.89 Other specified abnormal findings of blood chemistry; I10 Essential (primary) hypertension
CPT/HCPCS: 36415; 74176; 76705; 80053; 81003; 83690; 85025; 96361; 96365; 96375; 99284; A9270; J1170; J7040; 81001; 87086

== ENCOUNTER 2022-11-13 11:22 | Emergency (ER) | payer MEDICAID ==
[2022-11-13] MEDS ORDERED: ONDANSETRON 4 MG/2 ML VIAL IVP STA (11:51)
[2022-11-13] MEDS ORDERED: HYDROmorphone 1 MG/ML CARPUJECT IVP STA ×2 (11:51→12:58)
[2022-11-13] MEDS ORDERED: KETOROLAC 15 MG/ML VIAL IVP STA (11:51)
--- NOTE | 2022-11-13 11:53 | ED Physician Documentation ---
PD HPI ABD PAIN - Stated complaint Stated Complaint: RIGHT ABD PX - Chief complaint Chief Complaint: Abd Pain - History obtained from History obtained from: Patient - Additional information Additional information: 27-year-old gentleman with history of alcohol abuse, currently trying to cut back, was drinking a fifth of hard alcohol a day, now down to three quarters of the fifth a day. Also recurrent renal colic with multiple lithotripsies and stents. No other abdominal surgeries. Has had 2 days of right periumbilical pain radiating to the right. Is associated with vomiting with a small amount of hematemesis and some mucousy constipation. He has had hematuria with this as well. Last drink was 2 to 3 days ago he states on initial evaluation. PD PAST MEDICAL HISTORY - Past Medical History Cardiovascular: Hypertension Respiratory: None Neuro: None Endocrine/Autoimmune: None GI: None : Kidney stones HEENT: None Psych: None Musculoskeletal: None Derm: None - Past Surgical History Past Surgical History: Yes - Present Medications Home Medications: Ambulatory Orders Medication Instructions Recorded Confirmed LORazepam [Ativan] 1 mg PO TID PRN #7 tablet 11/13/22 Ondansetron Odt [Zofran] 4 mg TL Q6H PRN #10 tablet 11/13/22 oxyCODONE [Roxicodone] 5 mg PO Q4-6H PRN #15 tablet 11/13/22 prednisoLONE [Millipred] 8 tab PO DAILY #140 tab 11/13/22 - Allergies Allergies/Adverse Reactions: Allergies Allergy/AdvReac Type Severity Reaction Status Date / Time No Known Drug Allergies Allergy Verified 11/13/22 11:40 - Social History Does the pt smoke?: No Smoking Status: Never smoker Does the pt drink ETOH?: Yes Does the pt have substance abuse?: Yes - Immunizations Immunizations are current?: Yes - POLST Patient has POLST: No PD ED PE NORMAL - Vitals Vital signs reviewed: Yes - General General: Alert and oriented X 3, No acute distress - HEENT HEENT: PERRL, EOMI - Neck Neck: Supple, no meningeal sign, No bony TTP - Cardiac Cardiac: RRR, No murmur - Respiratory Respiratory: No respiratory distress, Clear bilaterally - Abdomen Abdomen: Normal bowel sounds, Soft, Other (Moderate diffuse abdominal tenderness especially in the right lower quadrant without surgical signs.) - Back Back: No CVA TTP, No spinal TTP - Derm Derm: Normal color, Warm and dry - Extremities Extremities: No edema, No calf tenderness / cord - Neuro Neuro: Alert and oriented X 3, Normal speech Results - Vitals Vitals: Vital Signs - 24 hr 11/13/22 11/13/22 11:37 11:58 Temperature 37.2 C Heart Rate 92 94 Respiratory 16 18 Rate Blood Pressure 139/89 H 154/101 H O2 Saturation 96 97 Oxygen O2 Source Room air - Labs Labs: Laboratory Tests 11/13/22 11/13/22 11/13/22 11:50 11:50 11:50 WBC 8.8 RBC 4.47 L Hgb 15.2 Hct 45.1 MCV 100.9 H MCH 34.0 H MCHC 33.7 RDW 11.9 L Plt Count 211 MPV 9.2 Neut # (Auto) 6.8 H Lymph # (Auto) 1.2 L [place] # (Auto) 0.6 Eos # (Auto) 0.1 Baso # (Auto) 0.1 Absolute Nucleated RBC 0.00 Nucleated RBC % 0.0 PT 17.7 H INR 1.6 H Sodium 134 L Potassium 2.8 L Chloride 93 L Carbon Dioxide 31 Anion Gap 10.0 BUN < 5 L Creatinine 0.5 L Estimated GFR (MDRD) 198 Glucose 125 H Calcium 8.3 L Magnesium 1.9 Total Bilirubin 5.4 H AST 155 H ALT 22 Alkaline Phosphatase 127 H Total Protein 7.5 Albumin 3.0 L Globulin 4.5 H Albumin/Globulin Ratio 0.7 L Lipase 41 Urine Color Urine Clarity Urine pH Ur Specific [place] Urine Protein Urine Glucose (UA) Urine Ketones Urine Occult Blood Urine Nitrite Urine Bilirubin Urine Urobilinogen Ur Leukocyte Esterase Urine RBC Urine WBC Ur Squamous Epith Cells Urine Bacteria Ur Microscopic Review Urine Culture Comments Ethyl Alcohol < 5.0 11/13/22 11:56 WBC RBC Hgb Hct MCV MCH MCHC RDW Plt Count MPV Neut # (Auto) Lymph # (Auto) [place] # (Auto) Eos # (Auto) Baso # (Auto) Absolute Nucleated RBC Nucleated RBC % PT INR Sodium Potassium Chloride Carbon Dioxide Anion Gap BUN Creatinine Estimated GFR (MDRD) Glucose Calcium Magnesium Total Bilirubin AST ALT Alkaline Phosphatase Total Protein Albumin Globulin Albumin/Globulin Ratio Lipase Urine Color DARK YELLOW Urine Clarity CLEAR Urine pH Ur Specific [place] 1.015 Urine Protein Urine Glucose (UA) NEGATIVE Urine Ketones NEGATIVE Urine Occult Blood Urine Nitrite Urine Bilirubin LARGE H Urine Urobilinogen Ur Leukocyte Esterase NEGATIVE Urine RBC 11-25 H Urine WBC 4-5 Ur Squamous Epith Cells FEW Squamous Urine Bacteria Few Ur Microscopic Review INDICATED Urine Culture Comments NOT INDICATED Ethyl Alcohol PD Medical Decision Making - ED course ED course: 27-year-old gentleman presents with right-sided abdominal pain. He is mildly icteric on exam and has a history of alcohol abuse. His work-up here shows a CBC that is basically normal save a microcytosis without anemia. His INR is elevated at 1.6 and he has evidence of alcoholic hepatitis on his labs. He had hypokalemia that was repleted both IV and orally. Urinalysis positive for bilirubin and blood and CT showing severe steatosis with portal hypertension. The above findings are consistent with cirrhosis. His MELD Na score is 21 giving an estimated 7 to 10% mortality in the next 90 days and this was discussed with the patient and he was appropriately alarmed. His discriminant factor is 31.6 points which I think is close enough to the cutoff to treat him with prednisolone. He understands the need for close follow-up, complete alcohol abstinence. He declined to go directly to detox but he understands it may be useful for him. Departure - Departure Disposition: 01 Home, Self Care Clinical Impression: Abdominal pain, Alcoholic hepatitis Condition: Good Record reviewed to determine appropriate education?: Yes Instructions: Cirrhosis Liver Dc, ED Alcohol Abuse Follow-Up: Zuleyma Fernandez PA-C [Provider Admit Priv/Credential] - Prescriptions: LORazepam [Ativan] 1 mg PO TID PRN #7 tablet PRN Reason: Anxiety prednisoLONE [Millipred] 8 tab PO DAILY #140 tab oxyCODONE [Roxicodone] 5 mg PO Q4-6H PRN #15 tablet PRN Reason: Pain Ondansetron Odt [Zofran] 4 mg TL Q6H PRN #10 tablet PRN Reason: Nausea / Vomiting Comments: I sent your prescriptions electronically to [facility] in [place]. As discussed you have severe alcoholic liver damage, and it has reached the point where it is starting to threaten your life. Complete and total alcohol abstinence is mandatory for improvement. Follow-up with KASSY Fernandez or one of her partners, they are on-call for clinic follow-up next week, call first thing tomorrow. I suspect they will refer you to hepatology as well. You may choose to go directly to detox, 1 option would be: [facility] [address] [facility] Address: [address], [place] [address] I am prescribing a short course of narcotic pain medication for you. These are potentially dangerous and addictive medications that should be used carefully. These medications may constipate you. Take an ctyx-ugh-qszmtry stool softener (docusate) twice daily with plenty of water while taking these medications. If you go 24 hours without a bowel movement, take iatf-cuc-nyghuva miralax, per package instructions. Do not drink or drive while taking these medications. If you received narcotic or sedating medications while in the emergency department, do not drive for 24 hours. Store this medication in a safe, secure place and out of reach of children. It is a violation of federal law to give or sell this medication to another person or to use in a manner other than prescribed. The ED will not refill narcotic prescriptions, including prescriptions lost or stolen. To dispose of unwanted medications: 1. [facility] at [address] [facility] in [place] has a medication drop box. They accept prescription medications (in pill form) Monday through Monday 9:00 a.m. to 5:00 p.m. 2. The [facility] accepts prescription medications (in pill form only) for disposal year round. Call for more information. 3. Contact the [facility] for the next [facility] sponsored prescription drug collection event. , [phone], or [phone]; Note that many narcotic pain relievers also contain Tylenol/acetaminophen. Please ensure that your total dose of acetaminophen from all sources does not exceed 3 g (3000 mg) per day.
[2022-11-13 11:54] LABS: BASOPHILS # (AUTO) 0.1 10^3/uL (0.0-0.1); BASOPHILS % (AUTO) 0.7 %; EOSINOPHILS # (AUTO) 0.1 10^3/uL (0.0-0.7); HCT - HEMATOCRIT 45.1 % (42.0-52.0); HGB - HEMOGLOBIN 15.2 g/dL (14.0-18.0); LYMPHOCYTES # (AUTO) 1.2 10^3/uL (1.5-3.5); LYMPHOCYTES % (AUTO) 13.5 %; MEAN CORPUSCULAR HGB CONC 33.7 g/dL (32.0-36.0); MEAN CORPUSCULAR VOLUME 100.9 fL (80.0-94.0); MEAN PLATELET VOLUME 9.2 fL (7.4-11.4); MONOCYTES # (AUTO) 0.6 10^3/uL (0.0-1.0); MONOCYTES % (AUTO) 6.5 %; NEUTROPHILS # (AUTO) 6.8 10^3/uL (1.5-6.6); PLT - PLATELET COUNT 211 10^3/uL (130-450); RED BLOOD COUNT 4.47 10^6/uL (4.70-6.10); RED CELL DISTRIBUTION WIDTH 11.9 % (12.0-15.0); WHITE BLOOD COUNT 8.8 x10^3/uL (4.8-10.8)
[2022-11-13] MEDS ORDERED: iohexoL-300 100 ML VIAL ONE (11:57)
[2022-11-13 11:59] LABS: GLUCOSE, URINE (UA) NEGATIVE (NEGATIVE); KETONES,URINE (UA) NEGATIVE (NEGATIVE); LEUKOCYTE ESTERASE, URINE NEGATIVE (NEGATIVE)
[2022-11-13 12:00] LABS: INR 1.6 (0.8-1.2); PT - PROTHROMBIN TIME 17.7 secs (9.9-12.6)
[2022-11-13 12:00] LABS: BILIRUBIN,URINE LARGE (NEGATIVE); CLARITY,URINE CLEAR (CLEAR); ICTOTEST,URINE POSITIVE
[2022-11-13 12:05] LABS: BACTERIA,URINE Few /HPF (None Seen); SQUAMOUS EPITHELIAL CELL,UR FEW Squamous (<= Few)
[2022-11-13 12:10] LABS: ALBUMIN/GLOBULIN RATIO 0.7 (1.0-2.2); ALKALINE PHOSPHATASE 127 IU/L (42-121); ALT ALANINE AMINOTRANSFERASE 22 IU/L (10-60); AST ASPARTATE AMINOTRANSFERASE 155 IU/L (10-42); BILIRUBIN,TOTAL 5.4 mg/dL (0.2-1.0); BUN - BLOOD UREA NITROGEN < 5 mg/dL (6-20); CALCIUM 8.3 mg/dL (8.5-10.3); CARBON DIOXIDE - CO2 31 mmol/L (21-32); CHLORIDE 93 mmol/L (101-111); CREATININE 0.5 mg/dL (0.6-1.2); ETOH - ETHANOL < 5.0 mg/dL; GFR - MDRD 198 (>89); GLUCOSE 125 mg/dL (70-100); LIPASE 41 U/L (22-51); MAGNESIUM 1.9 mg/dL (1.7-2.8); POTASSIUM 2.8 mmol/L (3.5-5.0); SODIUM 134 mmol/L (135-145); TOTAL PROTEIN 7.5 g/dL (6.7-8.2)
[2022-11-13] MEDS ORDERED: POTASSIUM CHLOR 10 MEQ/100 ML 10 MEQ/100 ML BAG IV STA (12:15)
[2022-11-13] MEDS ORDERED: POTASSIUM CHLORIDE 20 MEQ TABLET PO STA (12:15)
[2022-11-13] MEDS ORDERED: iohexoL-300 100 ML VIAL IVP ONE (12:32)
--- NOTE | 2022-11-13 12:38 | CT Report ---
PROCEDURE: ABDOMEN/PELVIS W INDICATIONS: IV only, R abd pain CONTRAST: 100ml omni 300 TECHNIQUE: After the administration of intravenous contrast, 5 mm thick sections acquired from the diaphragms to the symphysis. 5 mm thick coronal and sagittal reformats were acquired. For radiation dose reducti on, the following was used: automated exposure control, adjustment of mA and/or kV according to michele ent size. COMPARISON: CT dated 08/22/2022. FINDINGS: Image quality: Excellent. ABDOMEN: Lung bases: Lung bases are clear. Heart size is normal. Solid organs: Liver is enlarged and demonstrates diffusely decreased density without focal mass. Sup erimposed relatively decreased density surrounding the gallbladder fossa, consistent with increased f atty infiltration. Gallbladder is within normal limits Biliary system is non dilated. Pancreas enha nces normally. No adrenal nodules. Kidneys demonstrate normal size and enhancement, without hydrone phrosis. Peritoneum and bowel: Bowel loops demonstrate normal wall thickness and caliber. No free fluid or a ir. Mild fat stranding throughout the mesenteric fat. Normal appendix. Nodes and vessels: No retroperitoneal or mesenteric adenopathy by size criteria. Aorta and inferior vena cava are normal in size. Recanalized umbilical vein. Miscellaneous: No ventral hernias. PELVIS: Genitourinary: Bladder wall thickness is normal. Miscellaneous: No inguinal hernias or adenopathy. Bones: No suspicious bony lesions. No vertebral body compression fractures. IMPRESSION: 1. Hepatic steatosis. 2. Portal hypertension. 3. Normal appendix. 4. Hepatic steatosis. Reviewed by: Jennifer Moreau MD on 11/13/2022 12:37 PM PDT Approved by: Jennifer Moreau MD on 11/13/2022 12:37 PM PDT Station ID: [id number]
[2022-11-13 13:56] VITALS: BP 148/88
== END 2022-11-13 13:59 | disposition home or self-care (01) ==
LOC: ED 11:22
DX: K70.10 Alcoholic hepatitis without ascites (principal); I10 Essential (primary) hypertension; Z79.899 Other long term (current) drug therapy
CPT/HCPCS: 36415; 74177; 80053; 80320; 81001; 83690; 83735; 85025; 85610; 96365; 96375; 96376; 99284; A9270; J1170; Q9967; 81003; 87086

== ENCOUNTER 2022-12-01 08:17 | Emergency (ER) | payer MEDICAID ==
[2022-12-01 08:23] VITALS: BP 152/91
--- NOTE | 2022-12-01 08:47 | ED Physician Documentation ---
History of Present Illness - Stated complaint Stated Complaint: MALE - Chief complaint Chief Complaint: Abd Pain - History obtained from History obtained from: Patient - History of Present Illness Timing: How many days ago (3) - Additonal information Additional information: 27-year-old Fuentes Taylor is a recovering alcoholic who only recently discontinued alcohol. He is expecting to go into treatment in about 10 days. He has developed a very tender area on his buttocks close to his anus and feels like this is a hemorrhoid. He notes that it is doubled in size and is so painful it is even difficult for him to get his clothes on. Review of Systems Constitutional: denies: Fever Respiratory: denies: Cough GI: denies: Nausea, Vomiting, Constipation, Diarrhea Skin: denies: Rash Musculoskeletal: denies: Neck pain, Back pain, Extremity pain PD PAST MEDICAL HISTORY - Past Medical History Past Medical History: Yes Cardiovascular: Hypertension Respiratory: None Neuro: None Endocrine/Autoimmune: None GI: None : Kidney stones HEENT: None Psych: None Musculoskeletal: None Derm: None - Past Surgical History Past Surgical History: Yes - Present Medications Home Medications: Ambulatory Orders Medication Instructions Recorded Confirmed LORazepam [Ativan] 1 mg PO TID PRN #7 tablet 11/13/22 Ondansetron Odt [Zofran] 4 mg TL Q6H PRN #10 tablet 11/13/22 oxyCODONE [Roxicodone] 5 mg PO Q4-6H PRN #15 tablet 11/13/22 prednisoLONE [Millipred] 8 tab PO DAILY #140 tab 11/13/22 HYDROcod/ACETAM 5/325 [[place] 5/325] 1 - 2 tablet PO Q6H PRN #14 tablet 12/01/22 Sulfamethox/Trimeth 800/160 1 each PO BID #14 tablet 12/01/22 [Bactrim Ds] - Allergies Allergies/Adverse Reactions: Allergies Allergy/AdvReac Type Severity Reaction Status Date / Time No Known Drug Allergies Allergy Verified 12/01/22 08:23 - Social History Does the pt smoke?: No Smoking Status: Never smoker Does the pt drink ETOH?: Yes Does the pt have substance abuse?: Yes - Immunizations Immunizations are current?: Yes - POLST Patient has POLST: No PD ED PE NORMAL - Vitals Vital signs reviewed: Yes (tachy and hypertensive ) - General General: Alert and oriented X 3, No acute distress, Well developed/nourished - HEENT HEENT: Atraumatic, PERRL, EOMI, Other (scleral iterus is less than previously documented and confirmed improved by patient.) - Neck Neck: Supple, no meningeal sign, No bony TTP - Respiratory Respiratory: No respiratory distress - Rectal Rectal: Other (There is a 1 cm round firm mass that is extremely tender in the left perianal area. There are no hemorrhoids. With POCUS there is examined there is organized tissue without free fluid.) - Derm Derm: Normal color, Warm and dry, No rash - Neuro Neuro: Alert and oriented X 3, vehicle technician 2-12 intact, No motor deficit, No sensory deficit, Normal speech Eye Opening: Spontaneous Motor: Obeys Commands Verbal: Oriented GCS Score: 15 - Psych Psych: Normal mood, Normal affect Results - Vitals Vitals: Vital Signs - 24 hr 12/01/22 08:21 Temperature 37.4 C Heart Rate 120 H Respiratory 20 Rate Blood Pressure 152/91 H O2 Saturation 95 Oxygen O2 Source Room air PD Medical Decision Making - ED course Complexity details: reviewed old records, considered differential, d/w patient ED course: 27-year-old male with a recent visit to the emergency department for abdominal pain and alcoholic hepatitis has discontinued drinking and he appears to have been successful at this. He appears improved from his prior exam by documentation. Today he has what appears to be a perianal abscess that is forming. I did not find a deep pocket of pus the superficial tissues were organized and incision and drainage was not indicated. I discussed the findings with the patient we will place him on antibiotic and have him return for ripening. Departure - Departure Disposition: 01 Home, Self Care Clinical Impression: Perirectal abscess Condition: Stable Instructions: ED Staph Infec Abx Tx Only Follow-Up: Zuleyma Fernandez PA-C [Provider Admit Priv/Credential] - Prescriptions: Sulfamethox/Trimeth 800/160 [Bactrim Ds] 1 each PO BID #14 tablet HYDROcod/ACETAM 5/325 [[place] 5/325] 1 - 2 tablet PO Q6H PRN #14 tablet PRN Reason: Pain Comments: Fuentes, today it looks like you have a developing abscess near your rectum. We have E scribed some antibiotic to the [facility] in [place] as well as some pain medication. My recommendation for treatment is to use a warm compress, which is a washcloth with warm water on it, applied 10 minutes at a time 2-3 times per day. One of 2 things will happen with this. It will either increase in size break open and drain, or require incision and drainage here, or it will shrink and resolve. If you do have an increase in size and pain and fluctuance (the water balloon under the skin) develop come back and see us for drainage.
[2022-12-01] MEDS ORDERED: HYDROcod/ACETAM 5/325 MG TABLET PO STA (08:53)
--- OUTSIDE RECORDS SUMMARY | 2022-12-01 09:02 | EXTERNAL MEDICAL SUMMARY RPT | Continuity of Care Document ---
:1995 Author Organization [facility] Address [address] [place] [address] Phone Care Team Providers Name Role Phone Farrah Javier, Wanda Unavailable Unavailable Allergies No information. Encounters No information. Functional Status No information. Immunizations No information. Medications date description facility 2022-11-16 00:00 buspirone [facility] 2022-11-16 00:00 trazodone [facility] 2022-11-16 00:00 buspirone [facility] 2022-11-16 00:00 trazodone All 2022-11-16 00:00 buspirone All 2022-11-16 00:00 trazodone All 2022-11-16 00:00 trazodone All 2022-11-16 00:00 buspirone All Problems No information. Procedures No information. Results/Labs No information. Social History date description facility 2022-11-16 00:00 Unknown if ever smoked All Vital Signs No information.
== END 2022-12-01 09:07 | disposition home or self-care (01) ==
LOC: ED 08:17
DX: K61.1 Rectal abscess (principal); I10 Essential (primary) hypertension
CPT/HCPCS: 99282; 99283; A9270

== ENCOUNTER 2022-12-26 12:12 | Emergency (ER) | payer MEDICAID ==
[2022-12-26 12:36] LABS: BASOPHILS # (AUTO) 0.1 10^3/uL (0.0-0.1); BASOPHILS % (AUTO) 1.3 %; EOSINOPHILS # (AUTO) 0.2 10^3/uL (0.0-0.7); EOSINOPHILS % (AUTO) 3.5 %; HCT - HEMATOCRIT 41.8 % (42.0-52.0); HGB - HEMOGLOBIN 14.2 g/dL (14.0-18.0); LYMPHOCYTES # (AUTO) 0.9 10^3/uL (1.5-3.5); LYMPHOCYTES % (AUTO) 14.7 %; MEAN CORPUSCULAR HEMOGLOBIN 34.9 pg (27.0-31.0); MEAN CORPUSCULAR VOLUME 102.7 fL (80.0-94.0); MEAN PLATELET VOLUME 9.8 fL (7.4-11.4); MONOCYTES # (AUTO) 0.5 10^3/uL (0.0-1.0); MONOCYTES % (AUTO) 7.6 %; NEUTROPHILS # (AUTO) 4.6 10^3/uL (1.5-6.6); NEUTROPHILS % (AUTO) 72.7 %; PLT - PLATELET COUNT 138 10^3/uL (130-450); RED BLOOD COUNT 4.07 10^6/uL (4.70-6.10); RED CELL DISTRIBUTION WIDTH 13.2 % (12.0-15.0); WHITE BLOOD COUNT 6.3 x10^3/uL (4.8-10.8)
[2022-12-26 12:50] LABS: ALBUMIN 2.7 g/dL (3.2-5.5); ALBUMIN/GLOBULIN RATIO 0.5 (1.0-2.2); BILIRUBIN,TOTAL 7.8 mg/dL (0.2-1.0); CALCIUM 8.1 mg/dL (8.5-10.3); CREATININE 0.5 mg/dL (0.6-1.2); POTASSIUM 3.2 mmol/L (3.5-5.0); TOTAL PROTEIN 7.8 g/dL (6.7-8.2)
--- OUTSIDE RECORDS SUMMARY | 2022-12-26 13:07 | EXTERNAL MEDICAL SUMMARY RPT | Continuity of Care Document ---
Author Name Unknown Address [address] [place] [address] Phone Organization [facility] Address [address] [place] [address] Phone Care Team Providers Care Home Health Nurse Licensed Practical Name Role Phone Farrah Javier, aWnda Unavailable Unavai lable Medications date description facility 2022-11-16 00:00 buspirone [facility] 2022-11-16 00:00 trazodone [facility] 2022-11-16 00:00 buspirone All 2022-11-16 00:00 trazodone All 2022-11-16 00:00 buspirone All 2022-11-16 00:00 trazodone All 2022-11-16 00:00 trazodone All 2022-11-16 00:00 buspirone All Social History date description facility 2022-11-16 00:00 Unknown if ever smoked All
[2022-12-26 13:37] LABS: INR 1.8 (0.8-1.2); PT - PROTHROMBIN TIME 19.2 secs (9.9-12.6)
[2022-12-26 14:11] LABS: GLUCOSE, URINE (UA) NEGATIVE (NEGATIVE); KETONES,URINE (UA) TRACE mg/dL (NEGATIVE); LEUKOCYTE ESTERASE, URINE NEGATIVE (NEGATIVE); OCCULT BLOOD,URINE NEGATIVE (NEGATIVE)
--- NOTE | 2022-12-26 14:11 | ED Physician Documentation ---
History of Present Illness - Stated complaint Stated Complaint: ABD PX,VOMITING,NAUSEA,DIARRHEA - Chief complaint Chief Complaint: Abd Pain - History obtained from History obtained from: Patient - Additonal information Additional information: The patient comes to the emergency department chief complaint of upper abdominal pain, nausea, vomiting, and diarrhea that started around 2:00 this morning. He states he went to bed feeling completely normal for him but that the symptoms awakened him from sleep. Patient states that he has had chills but no fever. No urinary symptoms. He has been diagnosed with alcoholic liver cirrhosis and is currently undergoing further work-up for that. He states he does not feel That he looks any more jaundiced than usual. The patient states that he is still drinking alcohol that his last drink was 2-1/2 days ago. He has in recent months decreased his alcohol intake from 1/5 of vodka per day to half 1/5 every other day. He states that when he tries to go down further than that, his chronic pain bothers him. The patient denies any other complaints at this time. He does not feel as though he is withdrawing from alcohol. He does not know of any sick contacts. He is otherwise healthy except for the cirrhosis. PD PAST MEDICAL HISTORY - Past Medical History Past Medical History: Yes Cardiovascular: Hypertension Respiratory: None Neuro: None Endocrine/Autoimmune: None GI: None : Kidney stones HEENT: None Psych: None Musculoskeletal: None Derm: None - Past Surgical History Past Surgical History: Yes - Present Medications Home Medications: Ambulatory Orders Medication Instructions Recorded Confirmed LORazepam [Ativan] 1 mg PO TID PRN #7 tablet 11/13/22 Ondansetron Odt [Zofran] 4 mg TL Q6H PRN #10 tablet 11/13/22 oxyCODONE [Roxicodone] 5 mg PO Q4-6H PRN #15 tablet 11/13/22 prednisoLONE [Millipred] 8 tab PO DAILY #140 tab 11/13/22 HYDROcod/ACETAM 5/325 [[place] 5/325] 1 - 2 tablet PO Q6H PRN #14 tablet 12/01/22 Sulfamethox/Trimeth 800/160 1 each PO BID #14 tablet 12/01/22 [Bactrim Ds] Ondansetron Odt [Zofran] 4 mg TL Q6H PRN #20 tablet 12/26/22 - Allergies Allergies/Adverse Reactions: Allergies Allergy/AdvReac Type Severity Reaction Status Date / Time No Known Drug Allergies Allergy Verified 12/26/22 12:23 - Social History Does the pt smoke?: No Smoking Status: Never smoker Does the pt drink ETOH?: Yes Does the pt have substance abuse?: Yes - Immunizations Immunizations are current?: Yes - POLST Patient has POLST: No PD ED PE NORMAL - Vitals Vital signs reviewed: Yes - General General: Alert and oriented X 3, No acute distress, Well developed/nourished - HEENT HEENT: Atraumatic, PERRL, EOMI, Moist mucous membranes, Other (Slight icterus) - Neck Neck: Supple, no meningeal sign - Cardiac Cardiac: RRR, No murmur, Strong equal pulses - Respiratory Respiratory: No respiratory distress, Clear bilaterally - Abdomen Abdomen: Soft, Other (Obese, mild distention. Moderate epigastric tenderness mild right lower quadrant tenderness. No rebound or guarding.) - Derm Derm: Normal color, Warm and dry, No rash - Extremities Extremities: No deformity, No edema - Neuro Neuro: Alert and oriented X 3 - Psych Psych: Normal mood, Normal affect Results - Vitals Vitals: Vital Signs - 24 hr 12/26/22 12/26/22 12/26/22 12:23 14:26 15:38 Temperature 36.5 C Heart Rate 95 103 H 104 H Respiratory 16 18 20 Rate Blood Pressure 140/88 H 163/95 H 147/89 H O2 Saturation 96 95 95 Oxygen O2 Source Room air - Labs Labs: Laboratory Tests 12/26/22 12/26/22 12/26/22 12:32 12:32 12:32 WBC 6.3 RBC 4.07 L Hgb 14.2 Hct 41.8 L MCV 102.7 H MCH 34.9 H MCHC 34.0 RDW 13.2 Plt Count 138 MPV 9.8 Neut # (Auto) 4.6 Lymph # (Auto) 0.9 L [place] # (Auto) 0.5 Eos # (Auto) 0.2 Baso # (Auto) 0.1 Absolute Nucleated RBC 0.00 Nucleated RBC % 0.0 PT INR Sodium 138 Potassium 3.2 L Chloride 95 L Carbon Dioxide 30 Anion Gap 13.0 BUN 5 L Creatinine 0.5 L Estimated GFR (MDRD) 198 Glucose 113 H Calcium 8.1 L Total Bilirubin 7.8 H AST 204 H ALT 26 Alkaline Phosphatase 197 H Total Protein 7.8 Albumin 2.7 L Globulin 5.1 H Albumin/Globulin Ratio 0.5 L Lipase 47 Urine Color Urine Clarity Urine pH Ur Specific [place] Urine Protein Urine Glucose (UA) Urine Ketones Urine Occult Blood Urine Nitrite Urine Bilirubin Urine Urobilinogen Ur Leukocyte Esterase Urine RBC Urine WBC Ur Squamous Epith Cells Urine Bacteria Ur Microscopic Review Urine Culture Comments Ethyl Alcohol < 5.0 12/26/22 12/26/22 13:22 14:00 WBC RBC Hgb Hct MCV MCH MCHC RDW Plt Count MPV Neut # (Auto) Lymph # (Auto) [place] # (Auto) Eos # (Auto) Baso # (Auto) Absolute Nucleated RBC Nucleated RBC % PT 19.2 H INR 1.8 H Sodium Potassium Chloride Carbon Dioxide Anion Gap BUN Creatinine Estimated GFR (MDRD) Glucose Calcium Total Bilirubin AST ALT Alkaline Phosphatase Total Protein Albumin Globulin Albumin/Globulin Ratio Lipase Urine Color DK. ORANGE Urine Clarity CLEAR Urine pH Ur Specific [place] 1.015 Urine Protein Urine Glucose (UA) NEGATIVE Urine Ketones TRACE Urine Occult Blood NEGATIVE Urine Nitrite Urine Bilirubin MODERATE H Urine Urobilinogen Ur Leukocyte Esterase NEGATIVE Urine RBC 0-5 Urine WBC 0-3 Ur Squamous Epith Cells RARE Squamous Urine Bacteria Few Ur Microscopic Review INDICATED Urine Culture Comments NOT INDICATED Ethyl Alcohol PD Medical Decision Making - ED course Complexity details: reviewed results, re-evaluated patient, considered differential, d/w patient ED course: The patient was treated symptomatically with IV fluids, as well as Zofran and Dilaudid. He was worked up with laboratory studies including ER abdominal panel and CBC, both of which were reviewed by me. The patient's labs reflected his cirrhosis, For which he is in the process of being worked up. The patient was feeling much better after symptomatic management in the emergency department. We discussed home management of symptoms and I have sent a prescription for antiemetics for the patient. We have discussed the usual indications for return and follow-up. Departure - Departure Disposition: 01 Home, Self Care Clinical Impression: Gastroenteritis, Alcoholic liver disease Condition: Stable Instructions: Cirrhosis Liver Dc, ED Gastroenteritis Viral Prescriptions: Ondansetron Odt [Zofran] 4 mg TL Q6H PRN #20 tablet PRN Reason: Nausea / Vomiting Comments: Your labs today reflect the issues you are having with your liver but otherwise, are unremarkable. You have been treated with IV fluids and 2 different antinausea medications, as well as pain medication. A prescription for the medication has been electronically transmitted to the [facility] pharmacy in [place]. Please pick this up this evening. Please continue to follow-up with your primary doctor for further evaluation of your liver disease. As far as the vomiting and diarrhea, this is most likely due to one of the many viruses that are going around currently and causing such symptoms. In general, these illnesses are self-limited and will go away on their own in a matter of several days to a week or so. Please focus on getting clear liquids and do not try to eat for the next couple of days. Once you are able to tolerate clear liquids for at least 24 hours, then you may progress to simple starches like saltine or oyster crackers, Ramen noodles. If you tolerate these for 24 hours, you may gradually advance your diet back to normal. Discharge Date/Time: 12/26/22 16:34
[2022-12-26] MEDS ORDERED: HYDROmorphone 1 MG/ML CARPUJECT IVP STA ×2 (14:12→14:55)
[2022-12-26] MEDS ORDERED: ONDANSETRON 4 MG/2 ML VIAL IVP STA (14:12)
[2022-12-26] MEDS ORDERED: SODIUM CHLORIDE 0.9% 1,000 ML IV STA (14:12)
[2022-12-26 14:22] LABS: CLARITY,URINE CLEAR (CLEAR)
[2022-12-26 14:24] LABS: BILIRUBIN,URINE MODERATE (NEGATIVE); ICTOTEST,URINE POSITIVE
[2022-12-26 14:25] LABS: BACTERIA,URINE Few /HPF (None Seen); RBC,URINE 0-5 /HPF (0-5); SQUAMOUS EPITHELIAL CELL,UR RARE Squamous (<= Few); WBC,URINE 0-3 /HPF (0-3)
[2022-12-26] MEDS ORDERED: PROMETHAZINE INJ 25 MG in SODIUM CHLORIDE 0.9% 50 ML IV STA (14:55)
[2022-12-26 15:39] VITALS: BP 147/89
== END 2022-12-26 16:34 | disposition home or self-care (01) ==
LOC: ED 12:12
DX: K70.9 Alcoholic liver disease, unspecified (principal); K52.9 Noninfective gastroenteritis and colitis, unspecified; I10 Essential (primary) hypertension
CPT/HCPCS: 36415; 80053; 80320; 81001; 83690; 85025; 85610; 96365; 96375; 99284; J1170; J7040; 81003; 87086

== ENCOUNTER 2022-12-29 17:04 | Emergency (ER) | payer MEDICAID ==
[2022-12-29] MEDS ORDERED: SODIUM CHLORIDE 0.9% 1,000 ML IV STA ×2 (17:17→18:14)
[2022-12-29] MEDS ORDERED: ONDANSETRON 4 MG/2 ML VIAL IVP STA (17:18)
--- NOTE | 2022-12-29 17:31 | ED Physician Documentation ---
History of Present Illness - Stated complaint Stated Complaint: FEVER/VOMIT/DIARRHEA - Chief complaint Chief Complaint: Abd Pain - Additonal information Additional information: 27-year-old male who has a history of alcohol abuse presents to the emergency department for persistent nausea, vomiting, diarrhea and abdominal pain. Seen a few days ago for similar. Patient denies melena or hematochezia. No urinary symptoms. Patient states that he has periumbilical pain that radiates to his back. He has not drank alcohol now for 48 hours. Historically he would drink 1/5 of liquor daily but recently he has been cutting back and 1/5 of liquor will last him 3 days. He does not feel that he is in withdrawal. Over the last 24 hours as he was advancing his diet he has begun to have increased abdominal pain and now fevers. He has been taking Zofran which was working for some of the nausea until today. On presentation he is alert. He does have scleral icterus. No tremor. He is hypertensive and tachycardic. Review of Systems Constitutional: reports: Fever Cardiac: denies: Chest pain / pressure Respiratory: denies: Dyspnea GI: reports: Abdominal Pain, Nausea, Vomiting, Diarrhea : reports: Reviewed and negative Skin: reports: Reviewed and negative Musculoskeletal: reports: Reviewed and negative PD PAST MEDICAL HISTORY - Past Medical History Cardiovascular: Hypertension Respiratory: None Neuro: None Endocrine/Autoimmune: None GI: None : Kidney stones HEENT: None Psych: None Musculoskeletal: None Derm: None - Past Surgical History Past Surgical History: Yes - Present Medications Home Medications: Ambulatory Orders Medication Instructions Recorded Confirmed LORazepam [Ativan] 1 mg PO TID PRN #7 tablet 11/13/22 Ondansetron Odt [Zofran] 4 mg TL Q6H PRN #10 tablet 11/13/22 oxyCODONE [Roxicodone] 5 mg PO Q4-6H PRN #15 tablet 11/13/22 prednisoLONE [Millipred] 8 tab PO DAILY #140 tab 11/13/22 HYDROcod/ACETAM 5/325 [[place] 5/325] 1 - 2 tablet PO Q6H PRN #14 tablet 12/01/22 Sulfamethox/Trimeth 800/160 1 each PO BID #14 tablet 12/01/22 [Bactrim Ds] Ondansetron Odt [Zofran] 4 mg TL Q6H PRN #20 tablet 12/26/22 Ondansetron Odt [Zofran] 4 mg TL Q6H PRN #10 tablet 12/29/22 Pantoprazole Sodium [Protonix] 40 mg PO DAILY #30 packet 12/29/22 Sucralfate [Carafate] 1 gm PO ACHS #60 tablet 12/29/22 oxyCODONE [Roxicodone] 5 mg PO TID PRN #10 tablet 12/29/22 - Allergies Allergies/Adverse Reactions: Allergies Allergy/AdvReac Type Severity Reaction Status Date / Time No Known Drug Allergies Allergy Verified 12/29/22 17:11 - Social History Does the pt smoke?: No Smoking Status: Never smoker Does the pt drink ETOH?: Yes Does the pt have substance abuse?: Yes - Immunizations Immunizations are current?: Yes - POLST Patient has POLST: No PD ED PE NORMAL - General General: Alert and oriented X 3, No acute distress - HEENT HEENT: Other (Mild scleral icterus) - Neck Neck: Supple, no meningeal sign - Cardiac Cardiac: RRR (Tachycardic. No murmur), No murmur, Strong equal pulses - Respiratory Respiratory: No respiratory distress, Clear bilaterally - Abdomen Abdomen: Normal bowel sounds, Soft. 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 Eye Opening: Spontaneous Motor: Obeys Commands Verbal: Oriented GCS Score: 15 Results - Vitals Vitals: Vital Signs - 24 hr 12/29/22 12/29/22 12/29/22 17:07 18:15 19:33 Temperature 37.7 C Heart Rate 120 H 114 H 124 H Respiratory 16 16 16 Rate Blood Pressure 152/91 H 146/85 H 145/72 H O2 Saturation 95 95 93 Oxygen O2 Source Room air - Labs Labs: Laboratory Tests 12/29/22 12/29/22 12/29/22 17:29 17:29 17:36 WBC 6.5 RBC 3.52 L Hgb 12.3 L Hct 36.1 L MCV 102.6 H MCH 34.9 H MCHC 34.1 RDW 13.7 Plt Count 147 MPV 10.0 Neut # (Auto) Not Reportable Lymph # (Auto) Not Reportable [place] # (Auto) Not Reportable Eos # (Auto) Not Reportable Baso # (Auto) Not Reportable Absolute Nucleated RBC Not Reportable Total Counted 100 Band Neuts % (Manual) 2 Reactive Lymphs % (Man) 17 Abnorm Lymph % (Manual) 0 Nucleated RBC % Not Reportable Neutrophils # (Manual) 4.4 Lymphocytes # (Manual) 1.5 Monocytes # (Manual) 0.7 Eosinophils # (Manual) 0.0 Basophils # (Manual) 0.0 Nucleated RBCs 1 Differential Comment MANUAL DIFFERENTIAL Platelet Estimate NORMAL (130-450,000) Platelet Morphology NORMAL APPEARANCE RBC Morph Micro Appear 1+ ANISOCYTOSIS PT INR Sodium 137 Potassium 2.8 L Chloride 98 L Carbon Dioxide 27 Anion Gap 12.0 BUN < 5 L Creatinine 0.5 L Estimated GFR (MDRD) 198 Glucose 103 H Lactic Acid Calcium 7.8 L Total Bilirubin 5.4 H AST 229 H ALT 30 Alkaline Phosphatase 163 H Ammonia 36.7 H Total Protein 7.5 Albumin 2.5 L Globulin 5.0 H Albumin/Globulin Ratio 0.5 L Lipase 62 H Urine Color Urine Clarity Urine pH Ur Specific [place] Urine Protein Urine Glucose (UA) Urine Ketones Urine Occult Blood Urine Nitrite Urine Bilirubin Urine Urobilinogen Ur Leukocyte Esterase Urine RBC Urine WBC Ur Squamous Epith Cells Urine Bacteria Urine Mucus Ur Microscopic Review Urine Culture Comments Stl C. diff Tox B Gene 12/29/22 12/29/22 12/29/22 17:36 17:36 17:43 WBC RBC Hgb Hct MCV MCH MCHC RDW Plt Count MPV Neut # (Auto) Lymph # (Auto) [place] # (Auto) Eos # (Auto) Baso # (Auto) Absolute Nucleated RBC Total Counted Band Neuts % (Manual) Reactive Lymphs % (Man) Abnorm Lymph % (Manual) Nucleated RBC % Neutrophils # (Manual) Lymphocytes # (Manual) Monocytes # (Manual) Eosinophils # (Manual) Basophils # (Manual) Nucleated RBCs Differential Comment Platelet Estimate Platelet Morphology RBC Morph Micro Appear PT 20.4 H INR 1.9 H Sodium Potassium Chloride Carbon Dioxide Anion Gap BUN Creatinine Estimated GFR (MDRD) Glucose Lactic Acid 3.1 H* Calcium Total Bilirubin AST ALT Alkaline Phosphatase Ammonia Total Protein Albumin Globulin Albumin/Globulin Ratio Lipase Urine Color DARK YELLOW Urine Clarity CLEAR Urine pH 6.5 Ur Specific [place] 1.025 Urine Protein 30 H Urine Glucose (UA) NEGATIVE Urine Ketones TRACE Urine Occult Blood NEGATIVE Urine Nitrite Urine Bilirubin LARGE H Urine Urobilinogen Ur Leukocyte Esterase NEGATIVE Urine RBC 0-5 Urine WBC 0-3 Ur Squamous Epith Cells NONE SEEN Urine Bacteria None Seen Urine Mucus Moderate Strands Ur Microscopic Review INDICATED Urine Culture Comments NOT INDICATED Stl C. diff Tox B Gene 12/29/22 17:43 WBC RBC Hgb Hct MCV MCH MCHC RDW Plt Count MPV Neut # (Auto) Lymph # (Auto) [place] # (Auto) Eos # (Auto) Baso # (Auto) Absolute Nucleated RBC Total Counted Band Neuts % (Manual) Reactive Lymphs % (Man) Abnorm Lymph % (Manual) Nucleated RBC % Neutrophils # (Manual) Lymphocytes # (Manual) Monocytes # (Manual) Eosinophils # (Manual) Basophils # (Manual) Nucleated RBCs Differential Comment Platelet Estimate Platelet Morphology RBC Morph Micro Appear PT INR Sodium Potassium Chloride Carbon Dioxide Anion Gap BUN Creatinine Estimated GFR (MDRD) Glucose Lactic Acid Calcium Total Bilirubin AST ALT Alkaline Phosphatase Ammonia Total Protein Albumin Globulin Albumin/Globulin Ratio Lipase Urine Color Urine Clarity Urine pH Ur Specific [place] Urine Protein Urine Glucose (UA) Urine Ketones Urine Occult Blood Urine Nitrite Urine Bilirubin Urine Urobilinogen Ur Leukocyte Esterase Urine RBC Urine WBC Ur Squamous Epith Cells Urine Bacteria Urine Mucus Ur Microscopic Review Urine Culture Comments Stl C. diff Tox B Gene NEGATIVE - Rads (name of study) CT abd w Relevant Findings:: Final report received (Marked hepatomegaly and hepatic steatosis with signs of chronic portal hypertension, slightly worse compared to prior. There are mild inflammatory changes with the epicenter at the duodenum and consider duodenitis or peptic ulcer disease) PD Medical Decision Making - ED course Complexity details: reviewed results, re-evaluated patient, considered differential, d/w patient ED course: 27-year-old male who has a history of severe alcoholism presents to the emergency department for evaluation of uncontrolled abdominal pain vomiting and diarrhea. No bloody output. Seen in this ED for similar a few days ago and advised Zofran and clear liquids. Despite this he is having persistent pain in the upper abdomen though has been able to tolerate clear liquids occasionally. There have been no fevers. No melena. On exam the patient does have some mild generalized jaundice and scleral icterus. He is tachycardic sinus rhythm about 120. He is normotensive. Afebrile. Cardiopulmonary auscultation was unremarkable. No hypoxia on room air in no respiratory distress. His abdominal exam was nonperitoneal. No ascites was palpated. He is mostly tender in the upper quadrant and right side. We did repeat labs today that included CBC, electrolytes, lactic acid, urinalysis, INR and PTT. Per my interpretation there is a mild anemia with a hemoglobin of 12.3. Not unexpected given history. No thrombocytopenia. His INR is mildly elevated at 1.9 consistent with the known history of cirrhosis. He does have an elevated T. bili at 5.4 as well as an AST elevation though no worrisome ALT elevation. His alk phos is also elevated. Lactic is elevated at 3.1. This likely represents liver disease and not an acidosis due to shock. His lipase was not elevated. Urinalysis showed no signs of infection. He was noted to be hypokalemic with potassium of 2.8. This was repleted with a total of 20 meqs of potassium IV and 50 meq po. He was hypocalcemic with a calcium of 7.8. He was administered 1 g of calcium gluconate IV. MELD 21 with a 10% 90 days mortality risk. I did obtain a CT of the abdomen with contrast as his symptoms had not improved since last ED visit. Clinically I was evaluating for signs of obstructive gallbladder disease, nephroureterolithiasis, pancreatitis, peptic ulcer disease or even acute appendicitis. The CT scan does show hepatic steatosis and portal hypertension slightly worse than before. There were however findings to suggest inflammation at the duodenum concerning for duodenitis or peptic ulcer disease. In order to address this the patient was administered 40 mg of Protonix IV here in the emergency department as well as some Maalox and lidocaine orally. Following this the patient was given an oral p.o. challenge which he successfully tolerated. Clinically without fever, leukocytosis peritoneal abdominal exam or even ascit es, I am not concerned for SBP today. There is no findings suggest perforation or abscess formation near the duodenitis. He does not have acute pancreatitis on CT scan. I spent a fair amount of time with patient at the bedside discussing his cirrhosis. He is eager to quit. He has cut back markedly. He does have a pending referral to hepatology which was placed by his primary provider yesterd ay. In order to manage his duodenitis he will be discharged with prescription for Protonix. I am recommending clear liquids for the next several days as well as Zofran. He can use as needed Maalox. Patient reports that he has not drank for 2 days. Clinically he does not have any symptomatology of withdrawal. I discussed with the patient that should his symptoms worsen, he develop fevers, have uncontrolled vomiting despite 2 these medications have any hematic emesis, melena or hematochezia he is to return immediately to the ER for repeat evaluation. I am prescribing a short course of short-acting opioid pain medication for this patient. I have reviewed the patients [employer]ILLET [employer]SEMBLER and no concerning findings were noted. I have discussed that the opioids are for short term therapy only, and will not be refilled from the ED. Departure - Departure Disposition: 01 Home, Self Care Clinical Impression: Duodenitis, History of alcohol abuse Cirrhosis Qualifiers: Hepatic cirrhosis type: alcoholic cirrhosis Ascites presence: without ascites Qualified Code(s): K70.30 - Alcoholic cirrhosis of liver without ascites Condition: Poor Record reviewed to determine appropriate education?: Yes Instructions: Duodenitis, ED Cirrhosis Liver Prescriptions: Sucralfate [Carafate] 1 gm PO ACHS #60 tablet Pantoprazole Sodium [Protonix] 40 mg PO DAILY #30 packet oxyCODONE [Roxicodone] 5 mg PO TID PRN #10 tablet PRN Reason: Pain Ondansetron Odt [Zofran] 4 mg TL Q6H PRN #10 tablet PRN Reason: Nausea / Vomiting Comments: Fuentes you came to the emergency department because she continued to have abdominal pain vomiting and diarrhea. The CT scan does show inflammation in the duodenum, this is the first part of the intestine as it exits the stomach. This is most likely due to alcohol use. Please stop drinking. In order to treat the inflammation and peptic ulcer disease we are starting you on medication called Protonix. You should take this once daily. At night I am also requesting that you begin taking medication called Carafate. Do not take this with any other medications as it will block to their absorption. However this can help coat the stomach and improve pain. I recommend that for the next several days you drink clear liquids only. As the pain and inflammation begins to improve you can tolerate simple foods such as bananas, rice, applesauce and toast. Avoid caffeine spicy foods. It is going to be critical that you continue to follow through with a referral t o GI/hepatology for longer-term evaluation and management of your cirrhosis. If you stop drinking now it is likely that your liver disease can improve. But every drink you do take of alcohol will cause worsening damage to your liver. If despite these medications you continue to have uncontrolled vomiting, you have any bloody vomit, have any black or bloody stools you must return immediately to the ER for repeat evaluation. I wish you well in your journey I am prescribing a short course of narcotic pain medication for you. These are potentially dangerous and addictive medications that should be used carefully. These medications may constipate you. Take an [id number] stool softener (docusate) twice daily with plenty of water while taking these medications. If you go 24 hours without a bowel movement, take [id number] miralax, per package instructions. Do not drink or drive while taking these medications. If you received narcotic or sedating medications while in the emergency department, do not drive for 24 hours. Store this medication in a safe, secure place and out of reach of children. It is a violation of federal law to give or sell this medication to another person or to use in a manner other than prescribed. The ED will not refill narcotic prescriptions, including prescriptions lost or stolen. To dispose of unwanted medications: 1. [facility] at [address] in [place] has a medication drop box. They accept prescription medications (in pill form) Monday through Monday 9:00 a.m. to 5:00 p.m. 2. The [facility] accepts prescription medications (in pill form only) for disposal year round. Call for more information. 3. Contact the [facility] for the next [facility] sponsored prescription drug collection event. , [phone], or [phone]; Note that many narcotic pain relievers also contain Tylenol/acetaminophen. Please ensure that your total dose of acetaminophen from all sources does not exceed 3 g (3000 mg) per day.
[2022-12-29] MEDS ORDERED: iohexoL-300 100 ML VIAL ONE (17:37)
[2022-12-29 17:47] LABS: BASOPHILS % (AUTO) 0.6 %; EOSINOPHILS % (AUTO) 1.2 %; HCT - HEMATOCRIT 36.1 % (42.0-52.0); HGB - HEMOGLOBIN 12.3 g/dL (14.0-18.0); LYMPHOCYTES % (AUTO) 20.8 %; MEAN CORPUSCULAR HEMOGLOBIN 34.9 pg (27.0-31.0); MEAN CORPUSCULAR HGB CONC 34.1 g/dL (32.0-36.0); MEAN CORPUSCULAR VOLUME 102.6 fL (80.0-94.0); MONOCYTES % (AUTO) 10.1 %; NEUTROPHILS % (AUTO) 66.7 %; PLT - PLATELET COUNT 147 10^3/uL (130-450); RED BLOOD COUNT 3.52 10^6/uL (4.70-6.10); RED CELL DISTRIBUTION WIDTH 13.7 % (12.0-15.0); WHITE BLOOD COUNT 6.5 x10^3/uL (4.8-10.8)
[2022-12-29 17:51] LABS: INR 1.9 (0.8-1.2); PT - PROTHROMBIN TIME 20.4 secs (9.9-12.6)
[2022-12-29 17:55] LABS: ABNORMAL LYMPHS % (MANUAL) 0 %
[2022-12-29 17:58] LABS: ALBUMIN 2.5 g/dL (3.2-5.5); ALBUMIN/GLOBULIN RATIO 0.5 (1.0-2.2); ALKALINE PHOSPHATASE 163 IU/L (42-121); ALT ALANINE AMINOTRANSFERASE 30 IU/L (10-60); AST ASPARTATE AMINOTRANSFERASE 229 IU/L (10-42); BILIRUBIN,TOTAL 5.4 mg/dL (0.2-1.0); BUN - BLOOD UREA NITROGEN < 5 mg/dL (6-20); CALCIUM 7.8 mg/dL (8.5-10.3); CARBON DIOXIDE - CO2 27 mmol/L (21-32); CHLORIDE 98 mmol/L (101-111); CREATININE 0.5 mg/dL (0.6-1.2); GFR - MDRD 198 (>89); GLUCOSE 103 mg/dL (70-100); LIPASE 62 U/L (22-51); POTASSIUM 2.8 mmol/L (3.5-5.0); SODIUM 137 mmol/L (135-145); TOTAL PROTEIN 7.5 g/dL (6.7-8.2)
--- OUTSIDE RECORDS SUMMARY | 2022-12-29 18:01 | EXTERNAL MEDICAL SUMMARY RPT | Continuity of Care Document ---
Author Name Unknown Address [address] [place] [address] Phone Organization [facility] Address [address] [place] [address] Phone Care Team Providers Care Videogame Tester Name Role Phone Farrah Javier, Wanda Unavailable Unavai lable Medications date description facility 2022-11-16 00:00 [facility]pirone [facility] 2022-11-16 00:00 tra[facility]od[facility] 2022-11-16 00:00 [facility] 2022-11-16 00:00 trazod[facility] 2022-11-16 00:00 buspirone [facility] 2022-11-16 00:00 trazodone [facility] 2022-11-16 00:00 trazodone [facility] 2022-11-16 00:00 buspirone [facility] Social History date description facility 2022-11-16 00:00 Unknown if ever smoked [facility]
[2022-12-29 18:14] LABS: GLUCOSE, URINE (UA) NEGATIVE (NEGATIVE); KETONES,URINE (UA) TRACE mg/dL (NEGATIVE); LEUKOCYTE ESTERASE, URINE NEGATIVE (NEGATIVE); OCCULT BLOOD,URINE NEGATIVE (NEGATIVE); PH,URINE 6.5 PH (5.0-7.5); PROTEIN,URINE 30 mg/dL (NEGATIVE)
[2022-12-29] MEDS ORDERED: iohexoL-300 100 ML VIAL IVP ONE (18:15)
[2022-12-29] MEDS ORDERED: CALCIUM GLUC 1,000MG/50ML-NACL 1,000 MG/50 ML BAG IV STA (18:26)
[2022-12-29 18:28] LABS: CLARITY,URINE CLEAR (CLEAR)
[2022-12-29 18:29] LABS: BILIRUBIN,URINE LARGE (NEGATIVE); ICTOTEST,URINE POSITIVE
[2022-12-29 18:30] LABS: BACTERIA,URINE None Seen /HPF (None Seen); RBC,URINE 0-5 /HPF (0-5); SQUAMOUS EPITHELIAL CELL,UR NONE SEEN (<= Few); WBC,URINE 0-3 /HPF (0-3)
[2022-12-29 18:31] LABS: MUCUS,URINE Moderate Strands
[2022-12-29 18:41] LABS: BAND NEUTROPHILS % (MANUAL) 2 %; LYMPHOCYTES # (MANUAL) 1.5 10^3/uL (1.5-3.5); LYMPHOCYTES % (MANUAL) 6 %; MONOCYTES # (MANUAL) 0.7 10^3/uL (0.0-1.0); NEUTROPHILS # (MANUAL) 4.4 10^3/uL (1.5-6.6); NUCLEATED RBC (MANUAL) 1 %; REACTIVE LYMPHS % (MANUAL) 17 %
[2022-12-29 18:42] LABS: DIFFERENTIAL COMMENT MANUAL DIFFERENTIAL; PLATELET ESTIMATE, MANUAL NORMAL (130-450,000) (NORMAL); PLATELET MORPHOLOGY NORMAL APPEARANCE (NORMAL)
[2022-12-29] MEDS ORDERED: HYDROmorphone 1 MG/ML CARPUJECT IVP STA ×2 (18:57→21:15)
[2022-12-29] MEDS: POTASSIUM CHLOR 10 MEQ/100 ML 10 MEQ/100 ML BAG IV SCH ×2 (19:06→20:28)
--- NOTE | 2022-12-29 19:17 | CT Report ---
PROCEDURE: ABDOMEN/PELVIS W INDICATIONS: Abdominal pain, acute, nonlocalized CONTRAST: omni 300 100ml TECHNIQUE: After the administration of IV contrast, 5 mm thick sections acquired from the diaphragms to the symp hysis. 5 mm thick coronal and sagittal reformats were acquired. For radiation dose reduction, the f ollowing was used: automated exposure control, adjustment of mA and/or kV according to patient size. COMPARISON: 11/13/2022 FINDINGS: Image quality: Excellent. Lung bases and heart: Respiratory motion at the lung bases. No effusion or consolidation. Small hiata l hernia. Normal size heart. Liver: Marked hepatomegaly and moderate to marked hepatic steatosis. There are lobulated areas of mor e profound hypodensity in the gallbladder fossa, similar to the prior study. No new liver mass. Gallbladder and biliary tree: Distended. No wall thickening or calcifications. Nondilated biliary bhavna e. Spleen: Enlarged. 16.4 cm in length, slightly increased compared to prior. Pancreas: Diminutive pancreas without ductal dilatation. Adrenals: No adrenal nodule. Kidneys and ureters: No hydronephrosis. No renal cystic lesion which requires follow up. No solid mas s. Punctate nonobstructing left mid pole calcifications. Bowel and peritoneum: There is mild wall thickening and moderate periduodenal inflammatory changes al jerzy the second and third portion of the duodenum. There is adjacent fat stranding in the mesentery. S mall bowel loops are otherwise nonobstructed. Normal appendix in the right lower quadrant. There is a small amount of fluid at the tip of the liver, fascial thickening along both paracolic gutters, and trace fluid in the pelvis. Lymph nodes: No central or retroperitoneal adenopathy. Vessels: Recanalization of the umbilical vein. Prominent periumbilical, perisplenic varices and small esophageal varices. Prominent left inferior epigastric varices. Abdominal aorta and inferior vena ca va are normal caliber. PELVIS Reproductive organs: Unremarkable. Bladder: No abnormal wall thickening, accounting for underdistension. Pelvic lymph nodes: No pelvic adenopathy by size criteria. Bones: No aggressive osseous abnormality. Other: No significant ventral or inguinal hernia. IMPRESSION: 1. Marked hepatomegaly and hepatic steatosis with signs of chronic portal hypertension, slightly wors e compared to prior. 2. There are mild inflammatory changes with the epicenter at the duodenum and consider duodenitis or peptic ulcer disease. Reviewed by: June Jimenez MD on 12/29/2022 7:16 PM PDT Approved by: June Jimenez MD on 12/29/2022 7:16 PM PDT Station ID: [id number]
[2022-12-29] MEDS ORDERED: PANTOPRAZOLE 40 MG VIAL IVP STA (19:34)
[2022-12-29] MEDS ORDERED: MAG HYDROX/AL HYDROX/SIMETH 30 ML UDC PO STA (19:38)
[2022-12-29] MEDS ORDERED: LIDOCAINE VISCOUS 2% 15 ML ORAL SYRINGE MM STA (19:39)
[2022-12-29] MEDS ORDERED: POTASSIUM BICARB 25 MEQ TABLET PO STA (20:07)
--- NOTE | 2022-12-29 21:04 | Ultrasound Report ---
PROCEDURE: Abdomen Limited INDICATIONS: cirrhosis; abdnormal lft TECHNIQUE: Real-time focused scanning was performed of the abdomen, with image documentation. COMPARISONS: CT abdomen pelvis 12/29/2022, 11/13/2022. Ultrasound abdomen 08/22/2022. FINDINGS: Evaluation limited by body habitus and bowel gas. Liver: The liver is diffusely hyperechoic limiting evaluation for focal liver lesions and the liver v asculature. Gallbladder: The gallbladder was not well seen. Biliary ducts: Not well seen. Pancreas: Not well seen. Right kidney: Right kidney measures 11.6 cm. No hydronephrosis. IMPRESSION: 1. Markedly limited study as described. 2. Cirrhotic liver with diffuse increased echogenicity limiting evaluation for focal hepatic lesions. Reviewed by: Ray Martinez MD on 12/29/2022 9:02 PM PDT Approved by: Ray Martinez MD on 12/29/2022 9:02 PM PDT Station ID: [id number]
[2022-12-29 21:24] VITALS: BP 163/95
== END 2022-12-29 22:04 | disposition home or self-care (01) ==
LOC: ED 17:04
DX: K70.30 Alcoholic cirrhosis of liver without ascites (principal); K29.80 Duodenitis without bleeding
CPT/HCPCS: 36415; 74177; 76705; 80053; 81001; 82140; 83605; 83690; 85025; 85610; 87040; 87493; 96361; 96365; 96366; 96367; 96368; 96375; 96376; 99284; 99285; A9270; J1170; Q9967; 81003; 87086

== ENCOUNTER 2023-01-07 16:00 | Emergency (ER) | payer MEDICAID ==
[2023-01-07] MEDS ORDERED: PANTOPRAZOLE 40 MG VIAL IVP STA (16:32)
[2023-01-07] MEDS ORDERED: HYDROmorphone 1 MG/ML CARPUJECT IVP STA ×2 (16:32→17:59)
[2023-01-07] MEDS ORDERED: ONDANSETRON 4 MG/2 ML VIAL IVP STA (16:32)
[2023-01-07 16:36] LABS: GLUCOSE, URINE (UA) NEGATIVE (NEGATIVE); KETONES,URINE (UA) NEGATIVE (NEGATIVE); LEUKOCYTE ESTERASE, URINE NEGATIVE (NEGATIVE); NITRITE,URINE NEGATIVE (NEGATIVE); OCCULT BLOOD,URINE NEGATIVE (NEGATIVE); PH,URINE >=9.0 PH (5.0-7.5); PROTEIN,URINE 30 mg/dL (NEGATIVE); UROBILINOGEN,URINE 1 (NORMAL) E.U./dL (NORMAL)
--- NOTE | 2023-01-07 16:36 | ED Physician Documentation ---
PD HPI ABD PAIN - Stated complaint Stated Complaint: ADB PAIN/SWOLLEN FEET - Chief complaint Chief Complaint: Abd Pain - History obtained from History obtained from: Patient - History of Present Illness Timing - details: Waxing and waning Pain level max: 8 Pain level now: 5 Quality: Sharp, Pain Location: Periumbilical Associated symptoms: No: Fever, Diarrhea, Constipation, Hematochezia, Dysuria, Hematuria, Chest pain, Dizzy, Near syncope / syncope, Loss of appetite, Weight l oss - Additional information Additional information: Patient is a 27-year-old male who presents to the emergency department complaining of mid abdominal pain. He states that this been ongoing for the past several weeks, but became worse again last night and worsened today. He had a CT scan about 2 weeks ago that showed duodenitis. He states that he has a diagnosis of alcoholic cirrhosis of the liver. He states that he had dark vomit yesterday but it "did not taste like blood". He did have emesis today but there was no blood in this. Has not had any diarrhea or blood in the stool. He is not lightheaded, dizzy. No fevers. No chills. The pain had been improved with oxycodone. He is out of this currently. He is still on Protonix. Worse with p alpation, movement. Better with rest. Patient also complains of having swelling to the bilateral feet last night, states it was improved today. Better with elevation, worse with standing or walking Patient states that he has not had any alcohol in approximately 2 weeks Review of Systems Constitutional: denies: Fever, Chills : denies: Dysuria Skin: denies: Rash Musculoskeletal: denies: Neck pain, Back pain Neurologic: denies: Headache PD PAST MEDICAL HISTORY - Past Medical History Cardiovascular: Hypertension Respiratory: None Neuro: None Endocrine/Autoimmune: None GI: None : Kidney stones HEENT: None Psych: None Musculoskeletal: None Derm: None - Past Surgical History Past Surgical History: Yes - Present Medications Home Medications: Ambulatory Orders Medication Instructions Recorded Confirmed Ondansetron Odt [Zofran] 4 mg TL Q6H PRN #20 tablet 12/26/22 01/07/23 Pantoprazole Sodium [Protonix] 40 mg PO DAILY #30 packet 12/29/22 01/07/23 Amox/Clav 875/125 [Augmentin] 1 tab PO Q12H #20 tablet 01/07/23 Promethazine Supp [Phenergan Supp] 25 mg NH Q6H PRN #10 supp 01/07/23 Propranolol [Inderal] 10 mg PO Q6HR PRN 01/07/23 01/07/23 oxyCODONE [Roxicodone] 5 - 10 mg PO Q6H PRN #14 tablet 01/07/23 MDD 6 - Allergies Allergies/Adverse Reactions: Allergies Allergy/AdvReac Type Severity Reaction Status Date / Time No Known Drug Allergies Allergy Verified 01/07/23 16:08 - Social History Does the pt smoke?: No Smoking Status: Never smoker Does the pt drink ETOH?: Yes Does the pt have substance abuse?: Yes - Immunizations Immunizations are current?: Yes - POLST Patient has POLST: No PD ED PE NORMAL - Vitals Vital signs reviewed: Yes - General General: Alert and oriented X 3, No acute distress, Well developed/nourished - HEENT HEENT: PERRL, Moist mucous membranes, Other (Mild scleral icterus) - Neck Neck: Supple, no meningeal sign - Cardiac Cardiac: RRR - Respiratory Respiratory: No respiratory distress, Clear bilaterally - Abdomen Abdomen: Normal bowel sounds, Soft, Non distended, Other (Tender palpation epigastric and right upper quadrant. No peritoneal signs) - Derm Derm: Warm and dry - Extremities Extremities: Other (1+ bilateral lower extremity pitting edema.) - Neuro Neuro: Alert and oriented X 3 - Psych Psych: Normal mood, Normal affect Results - Vitals Vitals: Vital Signs - 24 hr 01/07/23 01/07/23 01/07/23 16:05 18:21 18:57 Temperature 36.2 C L Heart Rate 88 84 84 Respiratory 16 18 18 Rate Blood Pressure 143/86 H 135/85 H 135/84 H O2 Saturation 95 97 97 Oxygen O2 Source Room air - Labs Labs: Laboratory Tests 01/07/23 01/07/23 01/07/23 16:07 16:36 16:36 WBC 6.7 RBC 3.61 L Hgb 12.6 L Hct 37.1 L MCV 102.8 H MCH 34.9 H MCHC 34.0 RDW 14.0 Plt Count 156 MPV 9.9 Neut # (Auto) 4.9 Lymph # (Auto) 1.1 L Mobile # (Auto) 0.5 Eos # (Auto) 0.1 Baso # (Auto) 0.1 Absolute Nucleated RBC 0.00 Nucleated RBC % 0.0 PT INR APTT Sodium 136 Potassium 3.6 Chloride 97 L Carbon Dioxide 28 Anion Gap 11.0 BUN < 5 L Creatinine 0.4 L Estimated GFR (MDRD) 256 Glucose 112 H Calcium 7.7 L Total Bilirubin 9.1 H AST 269 H ALT 43 Alkaline Phosphatase 186 H Total Protein 7.7 Albumin 2.3 L Globulin 5.4 H Albumin/Globulin Ratio 0.4 L Lipase 55 H Urine Color DARK YELLOW Urine Clarity CLEAR Urine pH >=9.0 H Ur Specific [place] 1.010 Urine Protein 30 H Urine Glucose (UA) NEGATIVE Urine Ketones NEGATIVE Urine Occult Blood NEGATIVE Urine Nitrite NEGATIVE Urine Bilirubin MODERATE H Urine Urobilinogen 1 (NORMAL) Ur Leukocyte Esterase NEGATIVE Urine RBC 0-5 Urine WBC 0-3 Ur Squamous Epith Cells NONE SEEN Urine Bacteria None Seen Ur Microscopic Review INDICATED Urine Culture Comments NOT INDICATED Ethyl Alcohol < 5.0 01/07/23 16:36 WBC RBC Hgb Hct MCV MCH MCHC RDW Plt Count MPV Neut # (Auto) Lymph # (Auto) Mobile # (Auto) Eos # (Auto) Baso # (Auto) Absolute Nucleated RBC Nucleated RBC % PT 18.8 H INR 1.7 H APTT 36.1 H Sodium Potassium Chloride Carbon Dioxide Anion Gap BUN Creatinine Estimated GFR (MDRD) Glucose Calcium Total Bilirubin AST ALT Alkaline Phosphatase Total Protein Albumin Globulin Albumin/Globulin Ratio Lipase Urine Color Urine Clarity Urine pH Ur Specific [place] Urine Protein Urine Glucose (UA) Urine Ketones Urine Occult Blood Urine Nitrite Urine Bilirubin Urine Urobilinogen Ur Leukocyte Esterase Urine RBC Urine WBC Ur Squamous Epith Cells Urine Bacteria Ur Microscopic Review Urine Culture Comments Ethyl Alcohol - Rads (name of study) CT abd/pelvis Relevant Findings:: Final report received, See rad report RUQ US Relevant Findings:: Final report received, See rad report PD Medical Decision Making - ED course Complexity details: reviewed results, re-evaluated patient, considered differential, d/w patient ED course: 27-year-old male with a history of alcoholic hepatitis and reportedly alcoholic cirrhosis presents to the emergency department with umbilical abdominal pain. This been ongoing for several weeks, but worsened again last night. His white blood cell count is normal. Hemoglobin 12.6, mild anemia. Platelets are normal. INR is 1.7, this is close to his prior of 1.9 and 1.8. His chemistry reveals normal potassium, normal creatinine, normal sodium. Appears to have pseudo hypocalcemia, has a low albumin as well. His total bilirubin is elevated at 9.1, he has been up to 7.8 in the past. Alkaline phosphatase is elevated at 186, he has been to 197 in the past. Lipase is minimally elevated. Urinalysis is moderate bilirubin. Tox is negative for alcohol. CT abdomen pelvis did not show any acute significant changes from prior, does have some periumbilical inflammation, possible infection? He also still has duodenitis, we will continue the PPI. Given IV Dilaudid and IV Protonix here. His right upper quadrant ultrasound shows a distended gallbladder, this is unchanged on CT scan from prior. He has an appointment on Monday with his doctor for further imaging of his liver, unclear if this is an MRI of the liver or an MRCP? His pain is well controlled here. We will place him on Augmentin for the periumbilical inflammation. Do not feel clinically that he has acute cholecystitis given his normal white blood cell count, duration of symptoms of the several weeks and minimal right upper quadrant tenderness. Patient counseled regarding signs and symptoms for which I believe and urgent re-evaluation would be necessary. Patient with good understanding of and agreement to plan and is comfortable going home at this time This document was made in part using voice recognition software. While efforts are made to proofread this document, sound alike and grammatical errors may occur. Patient has minimal peripheral edema, appears to be dependent edema. We will hold off on diuretics at this time Departure - Departure Disposition: 01 Home, Self Care Clinical Impression: Hyperbilirubinemia, Duodenitis Abdominal pain Qualifiers: Abdominal location: unspecified location Qualified Code(s): R10.9 - Unspecified abdominal pain Cellulitis Qualifiers: Site of cellulitis: unspecified site Qualified Code(s): L03.90 - Cellulitis, unspecified Alcoholic cirrhosis of liver Qualifiers: Ascites presence: without ascites Qualified Code(s): K70.30 - Alcoholic cirrhos is of liver without ascites Condition: Good Instructions: ED Cirrhosis Liver Follow-Up: your,doctor in 3 days [Other] Tati Marcial MD [Physician No Access] - Prescriptions: Amox/Clav 875/125 [Augmentin] 1 tab PO Q12H #20 tablet Promethazine Supp [Phenergan Supp] 25 mg NH Q6H PRN #10 supp PRN Reason: vomiting oxyCODONE [Roxicodone] 5 - 10 mg PO Q6H PRN #14 tablet MDD 6 PRN Reason: pain Comments: Please follow-up with your doctor for further care. We will try you on antibiotics as you do have some inflammation around your bellybutton. Your gallbladder is also mildly thickened and distended, this is similar to your prior CT scan, this could demonstrate an infection as well, but given the amount of time and unchanged appearance of the gallbladder, this is less likely to be an acute infection. If you begin to worsen, please return for repeat evaluati on, especially for increasing pain or fever. Please drink plenty of fluids. Take all antibiotics until gone. Please follow-up with your doctor this week. Your bilirubin continues to be elevated as well. Your prescriptions were sent to [facility] in [place]. I am prescribing a short course of narcotic pain medication for you. These are potentially dangerous and addictive medications that should be used carefully. These medications may constipate you. Take an hldi-sas-ctfbfgd stool softener (docusate) twice daily with plenty of water while taking these medications. If you go 24 hours without a bowel movement, take [id number]-[id number] miralax, per package instructions. Do not drink or drive while taking these medications. If you received narcotic or sedating medications while in the emergency department, do not drive for 24 hours. Store this medication in a safe, secure place and out of reach of children. It is a violation of federal law to give or sell this medication to another p erson or to use in a manner other than prescribed. The ED will not refill narcotic prescriptions, including prescriptions lost or stolen. To dispose of unwanted medications: 1. [facility] [address] in [place] has a medication drop box. They accept prescription medications (in pill form) Monday through Monday 9:00 a.m. to 5:00 p.m. 2. The [facility] [employer] accepts prescription medications (in pill form only) for disposal year round. Call for more information. 3. Contact the [facility] for the next [facility] sponsored prescription drug collection event. , [phone], or [phone]; Discharge Date/Time: 01/07/23 18:58
[2023-01-07 16:38] LABS: BILIRUBIN,URINE MODERATE (NEGATIVE); CLARITY,URINE CLEAR (CLEAR); ICTOTEST,URINE POSITIVE
[2023-01-07 16:41] LABS: BASOPHILS # (AUTO) 0.1 10^3/uL (0.0-0.1); EOSINOPHILS # (AUTO) 0.1 10^3/uL (0.0-0.7); EOSINOPHILS % (AUTO) 0.9 %; HCT - HEMATOCRIT 37.1 % (42.0-52.0); HGB - HEMOGLOBIN 12.6 g/dL (14.0-18.0); LYMPHOCYTES # (AUTO) 1.1 10^3/uL (1.5-3.5); LYMPHOCYTES % (AUTO) 16.1 %; MEAN CORPUSCULAR HEMOGLOBIN 34.9 pg (27.0-31.0); MEAN CORPUSCULAR VOLUME 102.8 fL (80.0-94.0); MEAN PLATELET VOLUME 9.9 fL (7.4-11.4); MONOCYTES # (AUTO) 0.5 10^3/uL (0.0-1.0); MONOCYTES % (AUTO) 8.1 %; NEUTROPHILS # (AUTO) 4.9 10^3/uL (1.5-6.6); NEUTROPHILS % (AUTO) 73.6 %; PLT - PLATELET COUNT 156 10^3/uL (130-450); RED BLOOD COUNT 3.61 10^6/uL (4.70-6.10); WHITE BLOOD COUNT 6.7 x10^3/uL (4.8-10.8)
[2023-01-07 16:44] LABS: BACTERIA,URINE None Seen /HPF (None Seen); RBC,URINE 0-5 /HPF (0-5); SQUAMOUS EPITHELIAL CELL,UR NONE SEEN (<= Few); WBC,URINE 0-3 /HPF (0-3)
[2023-01-07 16:50] LABS: INR 1.7 (0.8-1.2); PT - PROTHROMBIN TIME 18.8 secs (9.9-12.6)
[2023-01-07 16:57] LABS: PARTIAL THROMBOPLASTIN TIME 36.1 secs (24.9-33.3)
[2023-01-07 17:00] LABS: ALBUMIN 2.3 g/dL (3.2-5.5); ALBUMIN/GLOBULIN RATIO 0.4 (1.0-2.2); ALKALINE PHOSPHATASE 186 IU/L (42-121); ALT ALANINE AMINOTRANSFERASE 43 IU/L (10-60); AST ASPARTATE AMINOTRANSFERASE 269 IU/L (10-42); BILIRUBIN,TOTAL 9.1 mg/dL (0.2-1.0); BUN - BLOOD UREA NITROGEN < 5 mg/dL (6-20); CALCIUM 7.7 mg/dL (8.5-10.3); CARBON DIOXIDE - CO2 28 mmol/L (21-32); CHLORIDE 97 mmol/L (101-111); CREATININE 0.4 mg/dL (0.6-1.2); ETOH - ETHANOL < 5.0 mg/dL; GFR - MDRD 256 (>89); GLUCOSE 112 mg/dL (70-100); LIPASE 55 U/L (22-51); POTASSIUM 3.6 mmol/L (3.5-5.0); SODIUM 136 mmol/L (135-145); TOTAL PROTEIN 7.7 g/dL (6.7-8.2)
[2023-01-07] MEDS ORDERED: iohexoL-300 100 ML VIAL ONE (17:11)
[2023-01-07] MEDS ORDERED: iohexoL-300 100 ML VIAL IVP ONE (17:29)
--- NOTE | 2023-01-07 17:40 | CT Report ---
PROCEDURE: ABDOMEN/PELVIS W INDICATIONS: RUQ abd pain, liver cirrhosis CONTRAST: 100ml omni 300 TECHNIQUE: After the administration of intravenous contrast, 5 mm thick sections acquired from the diaphragms to the symphysis. 5 mm thick coronal and sagittal reformats were acquired. For radiation dose reducti on, the following was used: automated exposure control, adjustment of mA and/or kV according to michele ent size. COMPARISON: CT dated 12/29/2022 FINDINGS: Image quality: Excellent. Lung bases and heart: Unremarkable. Liver: Enlarged and demonstrates diffusely decreased density, as before, consistent with fatty infilt ration. Relatively increased low density within the right and left hepatic lobe adjacent to the gallb ladder fossa. Gallbladder and biliary tree: Spleen: Enlarged measuring 16 cm without focal mass Pancreas: No pancreatic ductal dilation. Adrenals: No adrenal nodule. Kidneys and ureters: No hydronephrosis. No renal cystic lesion which requires follow up. No solid mas s. Nonobstructing 2 mm calculus in the inferior pole left kidney. Bowel and peritoneum: No bowel distension. Small amount of ascites. Appendix is not well seen. Lymph nodes: No central or retroperitoneal adenopathy. Vessels: No infrarenal aortic aneurysm. Multiple portosystemic collateral vessels in the perisplenic location. Recanalized umbilical vein. PELVIS Reproductive organs: Unremarkable. Bladder: No abnormal wall thickening, accounting for underdistension. Pelvic lymph nodes: No pelvic adenopathy by size criteria. Bones: No aggressive osseous abnormality. Other: No significant ventral or inguinal hernia. Fat stranding within the umbilicus. IMPRESSION: 1. No significant change compared to 12/29/2022. 2. Hepatomegaly, hepatic steatosis, and portal hypertension. Splenomegaly is present. 3. Small amount of ascites. 4. Findings suggestive of infection or inflammation surrounding the umbilicus. 5. Nonobstructing left inferior pole renal calculus. Reviewed by: Jennifer Moreau MD on 01/07/2023 4:39 PM JIMMIE Approved by: Jennifer Moreau MD on 01/07/2023 4:39 PM JIMMIE Station ID: [id number]
[2023-01-07] MEDS ORDERED: PROMETHAZINE INJ 25 MG in SODIUM CHLORIDE 0.9% 50 ML IV STA (18:00)
[2023-01-07] MEDS ORDERED: PROMETHAZINE 25 MG/1 ML VIAL ONE (18:08)
[2023-01-07] MEDS ORDERED: cefTRIAXone 1 GM VIAL IVP STA (18:10)
--- NOTE | 2023-01-07 18:13 | Ultrasound Report ---
PROCEDURE: Abdomen Limited INDICATIONS: RUQ abd pain TECHNIQUE: Real-time focused scanning was performed of the abdomen, with image documentation. COMPARISONS: None. FINDINGS: Liver: Liver is normal in size and demonstrates diffusely increased echogenicity. Gallbladder: Y is mildly thickened at 3.7 mm. Gallbladder is distended. Gallbladder is not well seen. Patient demonstrates tenderness overlying the gallbladder. Biliary ducts: Intrahepatic bile ducts are non-dilated. Extrahepatic bile duct caliber measures 11 mm. Normal is 6-7 mm or less in diameter, or 10 mm or less post-cholecystectomy. Pancreas: Visualized portions of the pancreas are sonographically normal. Right kidney: Normal in size and echotexture. Right kidney measures 12.1 cm long. No hydronephrosis or nephrolithiasis. No solid masses. No complex renal cystic lesions which require follow-up. Aorta: Visualized aorta is normal in caliber at less than 3 cm. IVC: Intrahepatic inferior vena cava is patent. Miscellaneous: Recanalized umbilical vein. IMPRESSION: 1. Distended and mildly thickened gallbladder which may indicate cholecystitis in the appropriate cli nical setting. 2. Recanalized umbilical vein. 3. Dilated common bile duct. Reviewed by: Jennifer Moreau MD on 01/07/2023 5:12 PM JIMMIE Approved by: Jennifer Moreau MD on 01/07/2023 5:12 PM JIMMIE Station ID: [id number]
[2023-01-07 18:57] VITALS: BP 135/84
== END 2023-01-07 18:58 | disposition home or self-care (01) ==
LOC: ED 16:00
DX: E80.6 Other disorders of bilirubin metabolism (principal); K29.80 Duodenitis without bleeding; R10.11 Right upper quadrant pain; R10.13 Epigastric pain; L03.90 Cellulitis, unspecified; K70.30 Alcoholic cirrhosis of liver without ascites
CPT/HCPCS: 36415; 74177; 76705; 80053; 80320; 81001; 83690; 85025; 85610; 85730; 96365; 96375; 96376; 99284; 99285; J1170; J7040; Q9967; 81003; 87086

== ENCOUNTER 2023-01-21 12:20 | Emergency (ER) | payer MEDICAID ==
[2023-01-21 12:41] LABS: BASOPHILS # (AUTO) 0.1 10^3/uL (0.0-0.1); EOSINOPHILS # (AUTO) 0.1 10^3/uL (0.0-0.7); EOSINOPHILS % (AUTO) 0.9 %; HCT - HEMATOCRIT 36.4 % (42.0-52.0); HGB - HEMOGLOBIN 12.4 g/dL (14.0-18.0); LYMPHOCYTES # (AUTO) 0.9 10^3/uL (1.5-3.5); LYMPHOCYTES % (AUTO) 12.9 %; MEAN CORPUSCULAR HGB CONC 34.1 g/dL (32.0-36.0); MEAN CORPUSCULAR VOLUME 102.8 fL (80.0-94.0); MEAN PLATELET VOLUME 9.6 fL (7.4-11.4); MONOCYTES # (AUTO) 0.5 10^3/uL (0.0-1.0); MONOCYTES % (AUTO) 7.5 %; NEUTROPHILS # (AUTO) 5.4 10^3/uL (1.5-6.6); NEUTROPHILS % (AUTO) 77.4 %; PLT - PLATELET COUNT 143 10^3/uL (130-450); RED BLOOD COUNT 3.54 10^6/uL (4.70-6.10); RED CELL DISTRIBUTION WIDTH 13.4 % (12.0-15.0); WHITE BLOOD COUNT 6.9 x10^3/uL (4.8-10.8)
[2023-01-21 12:46] LABS: INR 1.7 (0.8-1.2); PT - PROTHROMBIN TIME 18.7 secs (9.9-12.6)
[2023-01-21] MEDS ORDERED: ONDANSETRON ODT 4 MG TABLET TL STA (12:51)
[2023-01-21 12:52] LABS: ALBUMIN 2.5 g/dL (3.2-5.5); ALBUMIN/GLOBULIN RATIO 0.5 (1.0-2.2); ALKALINE PHOSPHATASE 167 IU/L (42-121); ALT ALANINE AMINOTRANSFERASE 57 IU/L (10-60); AST ASPARTATE AMINOTRANSFERASE 338 IU/L (10-42); BILIRUBIN,TOTAL 6.1 mg/dL (0.2-1.0); BUN - BLOOD UREA NITROGEN < 5 mg/dL (6-20); CALCIUM 7.9 mg/dL (8.5-10.3); CARBON DIOXIDE - CO2 27 mmol/L (21-32); CHLORIDE 103 mmol/L (101-111); CREATININE 0.4 mg/dL (0.6-1.2); GFR - MDRD 256 (>89); GLUCOSE 109 mg/dL (70-100); LIPASE 52 U/L (22-51); POTASSIUM 3.5 mmol/L (3.5-5.0); SODIUM 138 mmol/L (135-145); TOTAL PROTEIN 7.7 g/dL (6.7-8.2)
--- OUTSIDE RECORDS SUMMARY | 2023-01-21 13:00 | EXTERNAL MEDICAL SUMMARY RPT | Continuity of Care Document ---
Author Name Unknown Address [address] [place] [address] Phone Organization [facility] Address [address] [place] [address] Phone Care Team Providers Care Program Control Analyst Name Role Phone Farrah Javier, Wanda Unavailable [...]
--- NOTE | 2023-01-21 13:02 | ED Physician Documentation ---
History of Present Illness - Stated complaint Stated Complaint: NAUSEA/ABD PX/SWOLLEN FEET - Chief complaint Chief Complaint: Abd Pain - Additonal information Additional information: 27-year-old male return to the emergency department for evaluation of abdominal pain and vomiting. This patient has presented to the ER multiple times during the month of December for evaluation of abdominal pain in the setting of cirrhosis. Patient has recently undergone extensive imaging that included abdominal ultrasound and CT. Patient denies any fevers. States that with his cirrhosis nausea has been a chronic complaint. Typically using Compazine rectally but was ineffective this morning. He was seen by language pathologist 2 days ago who started him on spironolactone and Lasix. He is taken only 1 dose of each and could not tolerate them this morning due to vomiting. He is reporting he has some generalized abdominal pain which is not new for him. But he is having increasing swelling in his lower extremities. No altered mentation. He is scheduled to see hepatology at [facility] later this month to follow-up on labs. Review of Systems Constitutional: denies: Fever Throat: reports: Reviewed and negative Cardiac: reports: Reviewed and negative Respiratory: reports: Reviewed and negative GI: reports: Abdominal Pain, Vomiting. denies: Constipation, Diarrhea : reports: Reviewed and negative Skin: reports: Reviewed and negative Musculoskeletal: reports: Reviewed and negative PD PAST MEDICAL HISTORY - Past Medical History Cardiovascular: Hypertension Respiratory: None Neuro: None Endocrine/Autoimmune: None GI: None : Kidney stones HEENT: None Psych: None Musculoskeletal: None Derm: None - Past Surgical History Past Surgical History: Yes - Present Medications Home Medications: Ambulatory Orders Medication Instructions Recorded Confirmed Ondansetron Odt [Zofran] 4 mg TL Q6H PRN #20 tablet 12/26/22 01/07/23 Pantoprazole Sodium [Protonix] 40 mg PO DAILY #30 packet 12/29/22 01/07/23 Amox/Clav 875/125 [Augmentin] 1 tab PO Q12H #20 tablet 01/07/23 Promethazine Supp [Phenergan Supp] 25 mg SC Q6H PRN #10 supp 01/07/23 Propranolol [Inderal] 10 mg PO Q6HR PRN 01/07/23 01/07/23 oxyCODONE [Roxicodone] 5 - 10 mg PO Q6H PRN #14 tablet 01/07/23 MDD 6 Ondansetron Odt [Zofran] 4 mg TL Q6H PRN #20 tablet 01/21/23 Prochlorperazine [Compazine] 5 mg PO Q6H PRN #20 tablet 01/21/23 - Allergies Allergies/Adverse Reactions: Allergies Allergy/AdvReac Type Severity Reaction Status Date / Time No Known Drug Allergies Allergy Verified 01/21/23 12:51 - Social History Does the pt smoke?: No Smoking Status: Never smoker Does the pt drink ETOH?: Yes Does the pt have substance abuse?: Yes - Immunizations Immunizations are current?: Yes - POLST Patient has POLST: No PD ED PE NORMAL - General General: Alert and oriented X 3, No acute distress, Well developed/nourished - HEENT HEENT: Atraumatic, Moist mucous membranes - Neck Neck: Supple, no meningeal sign, No adenopathy, No JVD - Cardiac Cardiac: RRR, No murmur - Respiratory Respiratory: No respiratory distress, Clear bilaterally - Abdomen Abdomen: Normal bowel sounds, Soft. No: Non tender (Some mild generalized abdominal tenderness but nonperitoneal. 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 Eye Opening: Spontaneous Motor: Obeys Commands Verbal: Oriented GCS Score: 15 Results - Vitals Vitals: Vital Signs - 24 hr 01/21/23 01/21/23 12:47 14:29 Temperature 37.3 C Heart Rate 98 98 Respiratory 20 10 L Rate Blood Pressure 135/97 H 131/81 H O2 Saturation 99 92 Oxygen O2 Source Room air - Labs Labs: Laboratory Tests 01/21/23 01/21/23 01/21/23 12:32 12:32 12:32 WBC 6.9 RBC 3.54 L Hgb 12.4 L Hct 36.4 L MCV 102.8 H MCH 35.0 H MCHC 34.1 RDW 13.4 Plt Count 143 MPV 9.6 Neut # (Auto) 5.4 Lymph # (Auto) 0.9 L [place] # (Auto) 0.5 Eos # (Auto) 0.1 Baso # (Auto) 0.1 Absolute Nucleated RBC 0.00 Nucleated RBC % 0.0 PT 18.7 H INR 1.7 H Sodium 138 Potassium 3.5 Chloride 103 Carbon Dioxide 27 Anion Gap 8.0 BUN < 5 L Creatinine 0.4 L Estimated GFR (MDRD) 256 Glucose 109 H Calcium 7.9 L Total Bilirubin 6.1 H AST 338 H ALT 57 Alkaline Phosphatase 167 H B-Natriuretic Peptide Total Protein 7.7 Albumin 2.5 L Globulin 5.2 H Albumin/Globulin Ratio 0.5 L Lipase 52 H 01/21/23 12:32 WBC RBC Hgb Hct MCV MCH MCHC RDW Plt Count MPV Neut # (Auto) Lymph # (Auto) [place] # (Auto) Eos # (Auto) Baso # (Auto) Absolute Nucleated RBC Nucleated RBC % PT INR Sodium Potassium Chloride Carbon Dioxide Anion Gap BUN Creatinine Estimated GFR (MDRD) Glucose Calcium Total Bilirubin AST ALT Alkaline Phosphatase B-Natriuretic Peptide 257 H Total Protein Albumin Globulin Albumin/Globulin Ratio Lipase PD Medical Decision Making - ED course Complexity details: reviewed results, re-evaluated patient, considered differential, d/w patient ED course: 19-year-old male who has a known history of alcoholic cirrhosis currently being followed by hepatology presents emergency department for uncontrolled nausea and vomiting. Typically reports that his rectal Compazine helps but did not this morning. He also reports a taste and texture intolerance to Zofran. He does have abdominal pain though it is unchanged from his known baseline and is nonperitoneal. He presents with no fevers. Patient reportedly saw hepatology 48 hours ago and was started on furosemide and Aldactone. He is unable to take those doses this morning due to the nausea and vomiting. On presentation to the emergency department the patient is alert and well- appearing. He does have a distended though not tight abdomen. Very minimal tenderness was elicited. No obvious fluid wave was noted. He does have some chronic swelling of his lower extremities. He presents without findings to suggest encephalopathy and has a normal mental status. I did obtain CBC and electrolytes. CBC was without findings of leukocytosis. He has a normal hemoglobin of 12.3. His LFTs show a INR of 1.7 essentially unchanged from recent. His T. bili was 6.1 which is reduced from most recent visit. AST was 338. He continues to have an elevated alk phos. However in comparison to the most recent labs obtained on the there is some marginal improvement in the overall values. Today his MELD score is calculated 20 giving him a 7 to 10% 90-day mortality risk. Given that he is here with an unchanged and chronically present abdominal pain, he has no fever or peritoneal signs I have low suspicion for SBP. In the emergency department we initially gave him a dose of Zofran and ODT. Ultimately patient tolerated this well and he states that it markedly improved his nausea to the degree that he was tolerating sips of clear liquids. As such I do not feel that any other work-up is warranted at this time. A prescription for both Compazine and Zofran is being sent to the [facility] in [place]. Patient continues to have good follow-up and plan scheduled with his PCP as well as his language pathologist. He continues to have abstained from alcohol. I discussed with him the lab findings today. He was in agreement that he did not feel he needed advanced imaging. At this time he is discharged home in stable condition with usual emergent return precautions discussed Departure - Departure Disposition: 01 Home, Self Care Clinical Impression: Cirrhosis Qualifiers: Hepatic cirrhosis type: alcoholic cirrhosis Ascites presence: with ascites Qualified Code(s): K70.31 - Alcoholic cirrhosis of liver with ascites Nausea and vomiting Qualifiers: Vomiting type: unspecified Qualified Code(s): R11.2 - Nausea with vomiting, unspecified Condition: Stable Record reviewed to determine appropriate education?: Yes Prescriptions: Prochlorperazine [Compazine] 5 mg PO Q6H PRN #20 tablet PRN Reason: Nausea / Vomiting Ondansetron Odt [Zofran] 4 mg TL Q6H PRN #20 tablet PRN Reason: Nausea / Vomiting Comments: Fuentes you came to the emergency department because you continue to have some nausea and vomiting. This has limited your ability to take your diuretics part of your cirrhosis medication. Nausea and vomiting has been a recurrent symptom for you with the onset of your cirrhosis. Here in the emergency department we did give you a single dose of Zofran that you tucked back in your cheek. I know that the taste and the texture does make you nauseated but today it has successfully allowed you to sip clear liquids without vomiting. Your labs today continue to show evidence of the cirrhosis but they are stable when compared to most recent labs. It is important you continue to follow-up with the hepatology department as already scheduled. I recommend that in the mornings you either use the Zofran as it was administered today in the ER or take a Compazine with a very small sip of water and then wait 20 to 30 minutes. Once you do this start sipping clear liquids. When you are able to keep simple liquids down it is okay to then take your daily medications. I believe that as you are abdominal swelling and leg swelling begins to improve the nausea will also begin to improve. Return to the ER if you find that you are having worsening symptoms, uncontrolled vomiting, black or bloody stool, fevers or worsening swelling despite the diuretics
[2023-01-21] MEDS ORDERED: PROCHLORPERAZINE 5 MG TABLET PO STA (13:14)
[2023-01-21 14:32] VITALS: BP 131/81
== END 2023-01-21 14:43 | disposition home or self-care (01) ==
LOC: ED 12:20
DX: K70.31 Alcoholic cirrhosis of liver with ascites (principal); T50.0X6A Underdosing of mineralocorticoids and their antagonists, initial encounter; T50.1X6A Underdosing of loop [high-ceiling] diuretics, initial encounter; Z91.138 Patient's unintentional underdosing of medication regimen for other reason
CPT/HCPCS: 36415; 80053; 83690; 83880; 85025; 85610; 99283; 99284; A9270; Q0162; 82140

== ENCOUNTER 2023-01-29 20:18 | Outpatient (CLI) | payer MEDICAID | END 2023-01-29 23:59 | disposition E | LOC: EMS 20:18 | DX: I46.9 Cardiac arrest, cause unspecified (principal) | CPT/HCPCS: A0425; A0428 ==